=== PATIENT | female | born 1940 | race Caucasian/White ===

== ENCOUNTER 2016-12-24 06:25 | Emergency (ER) | payer MEDICARE, BC ==
[2016-12-24] MEDS ORDERED: LIDOCAINE 5% (700 MG) TRANSDERMAL ADH..PATCH TP ONE (06:58)
[2016-12-24] MEDS ORDERED: PROCHLORPERAZINE EDISYLATE INJ 10 MG/2 ML VIAL IV ONE (06:58)
[2016-12-24] MEDS ORDERED: ONDANSETRON HCL INJ/PF 4 MG/2 ML SDV IV ONE (06:58)
[2016-12-24] MEDS ORDERED: NORMAL SALINE 1000 ML 1,000 ML IV ONE (06:59)
[2016-12-24] MEDS ORDERED: NORMAL SALINE 500 ML IV ONE (06:59)
--- NOTE | 2016-12-24 07:14 | ER Document Report ---
ED General - General Chief Complaint: Headache Stated Complaint: HEADACHE Time Seen by Provider: 12/24/16 06:51 TRAVEL OUTSIDE OF THE [place] IN LAST 30 DAYS: No - HPI Patient complains to provider of: Right-sided headache Notes: Patient coming in for right-sided headache ongoing for the last 5 days. Patient states pain starts in the neck goes up to her head and to the forehead region. Patient states does feel like she has pins and needles. Patient has a history of multiple myeloma with hypertension. Patient states she is currently on chemotherapy and is on antihypertensive medication which she took just prior to arrival. Patient also states she is on a "commonly prescribed antibiotic that is pink" for a right ear infection. Otherwise patient denies fever chills nausea vomiting denies any photophobia. Denies any weakness. Patient is moving all 4 extremities ANO 4 with GCS 15 upon my evaluation. Denies any history of travel. Denies any history of trauma - Related Data Allergies/Adverse Reactions: No Known Allergies Allergy (Verified 12/24/16 08:46) Home Medications: Current Home Medications Levothyroxine Sodium [Levothyroxine Sodium] 88 mcg PO DAILY 12/24/16 [History] Metoprolol Succinate [Metoprolol Succinate] 50 mg PO DAILY 12/24/16 [History] Valsartan [Valsartan] 320 mg PO DAILY 12/24/16 [History] Past Medical History - Social History Smoking Status: Unknown if Ever Smoked Drug Abuse: None Family History: Reviewed & Not Pertinent Patient has suicidal ideation: No Patient has homicidal ideation: No - Past Medical History Cardiac Medical History: Reports: Hx Hypertension Renal/ Medical History: Denies: Hx Peritoneal Dialysis Review of Systems - Review of Systems Constitutional: No symptoms reported EENT: No symptoms reported Cardiovascular: No symptoms reported Respiratory: No symptoms reported Gastrointestinal: No symptoms reported Genitourinary: No symptoms reported Female Genitourinary: No symptoms reported Musculoskeletal: No symptoms reported Skin: No symptoms reported Hematologic/Lymphatic: No symptoms reported Neurological/Psychological: Headaches -: Yes All other systems reviewed and negative Physical Exam - Vital signs Vitals: Temp Pulse Resp BP Pulse Ox 98.3 F 64 20 193/55 H 96 12/24/16 06:26 12/24/16 06:26 12/24/16 06:26 12/24/16 06:26 12/24/16 06:26 Interpretation: Normal - General General appearance: Appears well, Alert - HEENT Head: Normocephalic, Atraumatic Eyes: Normal Conjunctiva: Normal Cornea: Normal Pupils: PERRL Anterior chamber: Normal Fundascopic: Normal Ears: Normal External canal: Normal Tympanic membrane: Normal Sinus: Normal Nasal: Normal Mouth/Lips: Normal Pharynx: Normal Neck: Other - Patient with tenderness to palpation of the paraspinal muscles of the right side. Patient also has tenderness going at full cervical spine on the right side with tenderness to palpation of the frontalis muscle on the right side of the forehead. Palpation does reproduce patient's pain. Range of motion of the neck is intact. - Respiratory Respiratory status: No respiratory distress Chest status: Nontender Breath sounds: Normal Chest palpation: Normal - Cardiovascular Rhythm: Regular Heart sounds: Normal auscultation Murmur: No - Abdominal Inspection: Normal Distension: No distension Bowel sounds: Normal Tenderness: Nontender Organomegaly: No organomegaly - Back Back: Normal, Nontender - Extremities General upper extremity: Normal inspection, Nontender, Normal color, Normal ROM , Normal temperature General lower extremity: Normal inspection, Nontender, Normal color, Normal ROM , Normal temperature, Normal weight bearing. No: Aleksandra's sign - Neurological Neuro grossly intact: Yes Cognition: Normal Orientation: AAOx4 [place] Coma Scale Eye Opening: Spontaneous [place] Coma Scale Verbal: Oriented [place] Coma Scale Motor: Obeys Commands Chintan Coma Scale Total: 15 Speech: Normal Motor strength normal: LUE, RUE, LLE, RLE Sensory: Normal - Psychological Associated symptoms: Normal affect, Normal mood - Skin Skin Temperature: Warm Skin Moisture: Dry Skin Color: Normal Course - Re-evaluation Re-evalutation: 12/24/16 07:14 12/24/16 13:19 The patient presents with headache without signs of FAMILY [employer] LEGAL ASSISTANT bleed, stroke, infection , or other serious etiology. The patient is neurologically intact. Given the extremely low risk of these diagnoses further testing and evaluation for these possibilities does not appear to be indicated at this time. The patient has been instructed to return if the symptoms worsen or change in any way.. - Vital Signs Vital signs: Temp Pulse Resp BP Pulse Ox 98.4 F 65 18 162/76 H 99 12/24/16 08:21 12/24/16 08:21 12/24/16 08:21 12/24/16 08:21 12/24/16 08:21 - Laboratory Result Diagrams: 12/24/16 07:40 12/24/16 07:40 Laboratory results interpreted by me: 12/24/16 12/24/16 07:40 07:40 MCV 99 H RDW 15.9 H Chloride 109 H BUN 31 H Creatinine 1.30 H Est GFR ( Amer) 48 L Est GFR (Non-Af Amer) 40 L Glucose 132 H Discharge - Discharge Clinical Impression: Headache Qualifiers: Headache type: unspecified Headache chronicity pattern: unspecified pattern Intractability: not intractable Qualified Code(s): R51 - Headache Condition: Good Disposition: HOME, SELF-CARE Instructions: Intravenous Compazine for Headaches ([facility]), Headache ([facility]), Tension Headache ([facility]), Migraine Headache ([facility]) Additional Instructions: Your headache is consistent with a possible migraine or tension headache. Please take medications as prescribed. Return to ER symptoms worsen. Prescriptions: Ondansetron [Zofran Odt 4 mg Tablet] 4 mg PO Q6 #20 tab.rapdis Prochlorperazine Maleate [Compazine] 5 mg PO Q6 #20 tablet Referrals: MIRACLE REYNA MD [Primary Care Provider] - Follow up as needed
[2016-12-24 08:02] LABS: ABSOLUTE EOSINOPHILS # (AUTO) 0.1 10^3/uL (0.0-0.6); ABSOLUTE LYMPHOCYTES (AUTO) 1.1 10^3/uL (0.5-4.7); ABSOLUTE MONOCYTES (AUTO) 0.7 10^3/uL (0.1-1.4); ABSOLUTE NEUT (AUTO) 4.9 10^3/uL (1.7-8.2); BASOPHILS % (AUTO) 0.7 % (0-2); HEMATOCRIT 36.8 % (36.0-47.0); HGB HCT DIFFERENCE -0.8; MEAN CORPUSCULAR HEMOGLOBIN 32.3 pg (27.0-33.4); MEAN CORPUSCULAR HGB CONC 32.6 g/dL (32.0-36.0); MEAN CORPUSCULAR VOLUME 99 fl (80-97); MONOCYTES % (AUTO) 10.2 % (3-13); RED BLOOD COUNT 3.72 10^6/uL (3.72-5.28); RED CELL DISTRIBUTION WIDTH 15.9 % (11.5-14.0); SEGMENTED NEUTROPHILS % (AUTO) 71.1 % (42-78); WHITE BLOOD COUNT 6.9 10^3/uL (4.0-10.5)
[2016-12-24 08:15] LABS: ANION GAP 12 (5-19); BLOOD UREA NITROGEN 31 mg/dL (7-20); CALCIUM 8.5 mg/dL (8.4-10.2); CARBON DIOXIDE 22 mmol/L (22-30); CHLORIDE 109 mmol/L (98-107); GLUCOSE 132 mg/dL (75-110); SODIUM 142.9 mmol/L (137-145)
--- NOTE | 2016-12-24 08:35 | RADIOLOGY REPORT (SQ) ---
EXAM DESCRIPTION: CT HEAD WITHOUT COMPLETED DATE/TIME: 12/24/2016 8:18 am REASON FOR STUDY: right sided headache COMPARISON: None. TECHNIQUE: Axial images acquired through the brain without intravenous contrast. Images reviewed wi th bone, brain and subdural windows. Images stored on PACS. All CT scanners at this facility use dose modulation, iterative reconstruction, and/or weight based d osing when appropriate to reduce radiation dose to as low as reasonably achievable (ALARA). [facility]: Dose Right [facility]: CareDose [facility]: Dose Right [facility]: Teradose 4D [facility]: Smart [employer] mobile RADIATION DOSE: Up-to-date CT equipment and radiation dose reduction techniques were employed. CTDIv ol: 64.6 mGy. DLP: 1034 mGy-cm. mGy. LIMITATIONS: Motion artifact. FINDINGS: VENTRICLES: Normal size and contour. CEREBRUM: No masses. No hemorrhage. No midline shift. Minimal chronic small vessel ischemic diseas e. . No evidence for acute infarction. CEREBELLUM: No masses. No hemorrhage. No alteration of density. No evidence for acute infarction. EXTRAAXIAL SPACES: No fluid collections. No masses. ORBITS AND GLOBE: No intra- or extraconal masses. Normal contour of globe without masses. CALVARIUM: No fracture. PARANASAL SINUSES: Minimal mucosal thickening in the sinuses. No air-fluid levels. SOFT TISSUES: No mass or hematoma. OTHER: No other significant finding. IMPRESSION: 1. No evidence of acute event. 2. Minimal chronic small vessel ischemic disease. 3. Minimal mucosal thickening in the sinuses. TECHNICAL DOCUMENTATION: JOB ID: [id number] Quality ID # [id number]: Final reports with documentation of one or more dose reduction techniques (e.g., Au tomated exposure control, adjustment of the mA and/or kV according to patient size, use of iterative reconstruction technique) 2010 [employer]- All Rights Reserved
[2016-12-24 08:40] VITALS: BP 162/76
[2016-12-24] MEDS ORDERED: KETOROLAC TROMETHAMINE INJ/PF 30 MG/1 ML SDV IV ONE (08:45)
[2016-12-24] MEDS ORDERED: DIPHENHYDRAMINE HCL 50 MG/ML VIAL IV ONE (08:45)
[2016-12-24] MEDS ORDERED: METOCLOPRAMIDE HCL INJ/PF 10 MG/2 ML SDV IV ONE (08:45)
[2016-12-24] MEDS ORDERED: DEXAMETHASONE SOD PHOS INJ 10 MG/1 ML VIAL IV ONE (10:22)
== END 2016-12-24 10:54 | disposition home or self-care (01) ==
LOC: ER 06:25
DX: R51 Headache (principal); I10 Essential (primary) hypertension
CPT/HCPCS: 99284; 96374; 96375; 36415; 85025; 80048; 70450; J1200; J1885; J2765; J0780; J2405; J7030; J1100

== ENCOUNTER → 2018-04-03 | Outpatient (CLI) | payer MEDICARE, BC ==
--- NOTE | 2018-04-03 18:34 | RADIOLOGY REPORT (SQ) ---
EXAM DESCRIPTION: VENOUS UNILATERAL LOWER COMPLETED DATE/TIME: 04/03/2018 6:18 pm REASON FOR STUDY: LLE SWELLING M79.89 OTHER SPECIFIED SOFT TISSUE DISORDERS COMPARISON: None. TECHNIQUE: Dynamic and static mason scale and color images acquired of the left leg venous system. Se lected spectral images acquired with additional compression and augmentation maneuvers. The contralat eral common femoral vein and saphenofemoral junction were also imaged. Images stored on PACS. LIMITATIONS: None. FINDINGS: COMMON FEMORAL: Normal phasicity, compression and augmentation. No visualized echogenic ma terial on mason scale. No defects on color images. FEMORAL: Normal compression and augmentation. No visualized echogenic material on mason scale. No defe cts on color images. POPLITEAL: Normal compression, augmentation. No visualized echogenic material on mason scale. No defec ts on color images. CALF VESSELS: Normal compression, augmentation. No visualized echogenic material on mason scale. No de fects on color images. GSV and SSV: Normal compression, augmentation. No visualized echogenic material on mason scale. No def ects on color images. ANY DEEP VENOUS INSUFFICIENCY: Not evaluated. ANY EVIDENCE OF POPLITEAL CYST: No. OTHER: No other significant finding. CONTRALATERAL COMMON FEMORAL VEIN AND SAPHENOFEMORAL JUNCTION: Normal phasicity, compression and augmentation. No visualized echogenic material on mason scale. No de fects on color images. IMPRESSION: NO EVIDENCE DVT OR SVT IN THE LEFT LEG. TECHNICAL DOCUMENTATION: JOB ID: [id number] [employer]- All Rights Reserved Reading location - IP/workstation name: [email or web address]
== END ==
LOC: SP 17:23
PROVIDERS: ATTEND Internal Medicine
DX: M79.89 Other specified soft tissue disorders (principal)
CPT/HCPCS: 93971

== ENCOUNTER 2019-02-05 00:38 | Emergency (ER) | payer MEDICARE, BC ==
[2019-02-05] MEDS ORDERED: ASPIRIN 81 MG TABLET, CHEWABLE PO ONE (00:45)
--- NOTE | 2019-02-05 01:01 | ER Document Report ---
ED Cardiac - General Chief Complaint: Chest Pain Stated Complaint: CHEST PAIN Time Seen by Provider: 02/05/19 00:55 Primary Care Provider: MIRACLE REYNA MD [Primary Care Provider] - Follow up as needed TRAVEL OUTSIDE OF THE [place] IN LAST 30 DAYS: No - HPI Notes: This is a 78-year-old female who presents today with complaint substernal chest pain described as tightness and aching, that started about 2 hours prior to presentation. Pain radiates down her arms and her jaw bilaterally. Associated symptoms include nausea but no vomiting. She also has some dyspnea. Patient describes generalized weakness. Patient notes that she had a similar presentation after she had a failed spinal chemotherapy for multiple myeloma. She states at that time, they had a full work-up which was negative for coronary artery disease. Her last chemotherapy was about 3 months ago. There are no obvious aggravating or relieving factors. - Related Data Allergies/Adverse Reactions: No Known Allergies Allergy (Verified 12/24/16 08:46) Past Medical History - Social History Smoking Status: Never Smoker Frequency of alcohol use: None Drug Abuse: None Family History: Reviewed & Not Pertinent - Past Medical History Cardiac Medical History: Reports: Hx Hypertension Renal/ Medical History: Denies: Hx Peritoneal Dialysis Review of Systems - Review of Systems Constitutional: Weakness. denies: Fever Cardiovascular: Chest pain, Dyspnea Respiratory: Short of breath Gastrointestinal: denies: Abdominal pain, Vomiting, Constipation Neurological/Psychological: Weakness -: Yes All other systems reviewed and negative Physical Exam - Vital signs Vitals: Resp Pulse Ox 27 H 95 02/05/19 01:15 02/05/19 01:15 Notes: Vital signs reviewed per nurse's notes. - General General appearance: Appears well - HEENT Head: Normocephalic, Atraumatic - Respiratory Respiratory status: No respiratory distress Chest status: Nontender Breath sounds: Normal Chest palpation: Normal - Cardiovascular Rhythm: Regular Heart sounds: Normal auscultation Murmur: No Friction rub: No - Abdominal Inspection: Normal Distension: No distension Bowel sounds: Normal Tenderness: Nontender - Back Back: Normal - Extremities General upper extremity: Normal inspection, Nontender General lower extremity: Normal inspection, Nontender - Neurological Neuro grossly intact: Yes Cognition: Normal Orientation: AAOx4 [place] Coma Scale Eye Opening: Spontaneous [place] Coma Scale Verbal: Oriented Speech: Normal - Skin Skin Temperature: Warm Skin Moisture: Dry Skin Color: Ashen Course - Re-evaluation Re-evalutation: 02/05/19 01:01 Differential diagnosis includes acute coronary syndrome versus atypical chest pain. Given this patient's risk factors, I will need to rule out ACS. EKG shows normal sinus rhythm at 80 bpm. There is inferolateral ST depression but no ST segment elevation. 02/05/19 02:21 Patient reevaluated. She is pain-free. Repeat EKG is essentially unchanged from initial EKG. Shows normal sinus rhythm at [address] segment depression but no obvious elevation. Patient's care discussed with Dr. Sanches, cardiology. He recommends transfer to [facility] for urgent cath. 02/05/19 03:04 Patient reevaluated. Patient remains pain-free. Patient's case discussed with Dr. Kesha Guo [facility]. He accepts transfer. Recommend to start heparin drip. Also recommend improved blood pressure control. 02/05/19 06:18 Patient reevaluated. She is resting comfortably. She has no pain at this time. She is stable for transfer. - Vital Signs Vital signs: Temp Pulse Resp BP Pulse Ox 98.5 F 12 163/65 H 94 02/05/19 04:00 02/05/19 04:32 02/05/19 04:32 02/05/19 04:32 - Laboratory Result Diagrams: 02/05/19 04:45 02/05/19 01:15 Laboratory results interpreted by me: 02/05/19 02/05/19 02/05/19 01:15 01:15 03:20 WBC 12.4 H RBC 3.47 L Hgb 10.7 L Hct 32.7 L RDW 16.6 H Absolute Neuts (auto) 9.5 H Potassium 5.5 H Chloride 112 H Carbon Dioxide 18 L BUN 36 H Creatinine 1.86 H Est GFR ( Amer) 32 L Est GFR (MDRD) Non-Af 26 L Glucose 277 H Alkaline Phosphatase 172 H Creatine Kinase 146 H Urine Protein >=500 H Urine Glucose (UA) 150 H Urine Blood SMALL H 02/05/19 04:45 WBC 12.1 H RBC 3.17 L Hgb 9.6 L Hct 29.6 L RDW 16.4 H Absolute Neuts (auto) Potassium Chloride Carbon Dioxide BUN Creatinine Est GFR ( Amer) Est GFR (MDRD) Non-Af Glucose Alkaline Phosphatase Creatine Kinase Urine Protein Urine Glucose (UA) Urine Blood Critical Care Note - Critical Care Note Total time excluding time spent on procedures (mins): 60 Comments: Critical care time for evaluation and management of acute coronary syndrome. Discharge - Discharge Clinical Impression: NSTEMI (non-ST elevated myocardial infarction) Condition: Fair Disposition: [facility] Referrals: MIRACLE REYNA MD [Primary Care Provider] - Follow up as needed
[2019-02-05] MEDS: NITROGLYCERIN 0.4 MG/TAB 25 TAB/BOTTLE SL PRN ×2 (01:25→01:30)
[2019-02-05 01:29] LABS: ABSOLUTE BASOPHILS # (AUTO) 0.2 10^3/uL (0.0-0.2); ABSOLUTE EOSINOPHILS # (AUTO) 0.2 10^3/uL (0.0-0.6); ABSOLUTE MONOCYTES (AUTO) 0.5 10^3/uL (0.1-1.4); ABSOLUTE NEUT (AUTO) 9.5 10^3/uL (1.7-8.2); BASOPHILS % (AUTO) 1.2 % (0-2); EOSINOPHILS % (AUTO) 1.4 % (0-6); HEMATOCRIT 32.7 % (36.0-47.0); HEMOGLOBIN 10.7 g/dL (12.0-15.5); LYMPHOCYTES % (AUTO) 16.5 % (13-45); MEAN CORPUSCULAR HEMOGLOBIN 30.9 pg (27.0-33.4); MEAN CORPUSCULAR HGB CONC 32.7 g/dL (32.0-36.0); MEAN CORPUSCULAR VOLUME 94 fl (80-97); MONOCYTES % (AUTO) 4.1 % (3-13); PLATELET COUNT 346 10^3/uL (150-450); RED BLOOD COUNT 3.47 10^6/uL (3.72-5.28); RED CELL DISTRIBUTION WIDTH 16.6 % (11.5-14.0); SEGMENTED NEUTROPHILS % (AUTO) 76.8 % (42-78); TOTAL CELLS COUNTED % (AUTO) 100 %; WHITE BLOOD COUNT 12.4 10^3/uL (4.0-10.5)
[2019-02-05 01:43] LABS: ALKALINE PHOSPHATASE 172 U/L (38-126); ANION GAP 13 (5-19); ASPARTATE AMINO TRANSFERASE 22 U/L (14-36); BILIRUBIN,DIRECT 0.1 mg/dL (0.0-0.4); BILIRUBIN,TOTAL 0.4 mg/dL (0.2-1.3); BLOOD UREA NITROGEN 36 mg/dL (7-20); CARBON DIOXIDE 18 mmol/L (22-30); CHLORIDE 112 mmol/L (98-107); CREATINE KINASE 146 U/L (30-135); GLUCOSE 277 mg/dL (75-110); POTASSIUM 5.5 mmol/L (3.6-5.0); TOTAL PROTEIN 7.8 g/dL (6.3-8.2)
[2019-02-05 01:54] LABS: CREATINE KINASE MB 4.09 ng/mL (<4.55)
[2019-02-05 02:01] LABS: TROPONIN I 0.167 ng/mL
[2019-02-05] MEDS ORDERED: MORPHINE SULFATE 10 MG/ML INJ IV ONE (02:04)
--- NOTE | 2019-02-05 02:31 | RADIOLOGY REPORT (SQ) ---
EXAM DESCRIPTION: XR CHEST 2 VIEWS COMPLETED DATE/TME: 02/05/2019 00:00 CLINICAL HISTORY: 78 years, Female, cp COMPARISON: None. NUMBER OF VIEWS: 2 TECHNIQUE: 2 view chest LIMITATIONS: None. FINDINGS: Heart size is normal. Osteopenia. Lungs are clear. No pneumothorax IMPRESSION: No acute cardiopulmonary process copyright 2010 [employer]- All Rights Reserved
[2019-02-05] MEDS ORDERED: HEPARIN SOD (PORCINE) 1,000 UNIT/ML 10 ML VIAL IV ONE (03:02)
[2019-02-05] MEDS ORDERED: HEPARIN SODIUM,PORCINE/D5W 25,000 UNIT/250 ML RTUINJ IV PRN (03:02)
[2019-02-05] MEDS ORDERED: METOPROLOL TARTRATE PF/INJ 5 MG/5 ML SDV IV ONE (03:04)
[2019-02-05] MEDS ORDERED: HEPARIN SODIUM,PORCINE/D5W 25,000 UNIT/250 ML RTUINJ IV ONE (03:31)
[2019-02-05 03:34] LABS: APPEARANCE,URINE CLEAR; BILIRUBIN,URINE NEGATIVE (NEGATIVE); COLOR,URINE YELLOW; GLUCOSE, URINE 150 mg/dL (NEGATIVE); KETONES,URINE NEGATIVE (NEGATIVE); LEUKOCYTE ESTERASE,URINE NEGATIVE (NEGATIVE); NITRITE,URINE NEGATIVE (NEGATIVE); PROTEIN,URINE >=500 mg/dL (NEGATIVE); URINE SPECIFIC GRAVITY 1.013; UROBILINOGEN,URINE NEGATIVE mg/dL (<2.0)
[2019-02-05 03:43] LABS: PROTHROMBIN TIME 13.2 SEC (11.4-15.4)
[2019-02-05 03:44] LABS: PARTIAL THROMBOPLASTIN TIME 31.1 SEC (23.5-35.8)
[2019-02-05 05:22] LABS: ABSOLUTE BASOPHILS # (AUTO) 0.1 10^3/uL (0.0-0.2); ABSOLUTE EOSINOPHILS # (AUTO) 0.2 10^3/uL (0.0-0.6); ABSOLUTE MONOCYTES (AUTO) 0.7 10^3/uL (0.1-1.4); ABSOLUTE NEUT (AUTO) 8.2 10^3/uL (1.7-8.2); BASOPHILS % (AUTO) 1.1 % (0-2); EOSINOPHILS % (AUTO) 1.3 % (0-6); HEMATOCRIT 29.6 % (36.0-47.0); HEMOGLOBIN 9.6 g/dL (12.0-15.5); LYMPHOCYTES % (AUTO) 24.6 % (13-45); MEAN CORPUSCULAR HEMOGLOBIN 30.3 pg (27.0-33.4); MEAN CORPUSCULAR HGB CONC 32.4 g/dL (32.0-36.0); MEAN CORPUSCULAR VOLUME 93 fl (80-97); MONOCYTES % (AUTO) 5.6 % (3-13); PLATELET COUNT 306 10^3/uL (150-450); RED BLOOD COUNT 3.17 10^6/uL (3.72-5.28); RED CELL DISTRIBUTION WIDTH 16.4 % (11.5-14.0); SEGMENTED NEUTROPHILS % (AUTO) 67.4 % (42-78); TOTAL CELLS COUNTED % (AUTO) 100 %; WHITE BLOOD COUNT 12.1 10^3/uL (4.0-10.5)
[2019-02-05] MEDS ORDERED: HEPARIN SOD (PORCINE) 1,000 UNIT/ML 10 ML VIAL IV PRN (06:03)
--- NOTE | 2019-02-05 07:38 | EKG REPORT ---
SEVERITY:- ABNORMAL ECG - SINUS RHYTHM INCOMPLETE RIGHT BUNDLE BRANCH BLOCK ST DEPRESSION, CONSIDER ISCHEMIA, ANT-LAT LDS : Confirmed by: Michael Perez MD 05-Feb-2019 07:37:45
--- NOTE | 2019-02-05 07:39 | EKG REPORT ---
SEVERITY:- ABNORMAL ECG - SINUS RHYTHM IVCD, CONSIDER ATYPICAL RBBB ST DEPRESSION, CONSIDER ISCHEMIA, ANT LEADS : Confirmed by: Michael Perez MD 05-Feb-2019 07:38:22
[2019-02-05 09:14] LABS: HEMATOCRIT 29.2 % (36.0-47.0); HEMOGLOBIN 9.6 g/dL (12.0-15.5); MEAN CORPUSCULAR HEMOGLOBIN 30.9 pg (27.0-33.4); MEAN CORPUSCULAR HGB CONC 32.8 g/dL (32.0-36.0); MEAN CORPUSCULAR VOLUME 94 fl (80-97); PLATELET COUNT 300 10^3/uL (150-450); RED CELL DISTRIBUTION WIDTH 16.6 % (11.5-14.0); WHITE BLOOD COUNT 11.2 10^3/uL (4.0-10.5)
--- NOTE | 2019-02-05 10:06 | ER Document Report ---
Doctor's Note Notes: 02/05/19 10:03 I have evaluated this pt. this am and she has no c/o at this time. She feels all of her needs are being met and her physical exam is normal. She is awaiting transfer to [facility] for her medical issues
--- NOTE | 2019-02-05 10:27 | ER Document Report ---
Doctor's Note Notes: 02/05/19 10:27 Transfer is here for the patient. Her heparin was stopped due to excessive PTT. Her vital signs are stable, she is resting comfortably. She is stable for transfer at this time.
[2019-02-05 10:43] VITALS: BP 172/74
== END 2019-02-05 10:44 | disposition short-term general hospital (02) ==
LOC: ER 00:38
DX: I21.4 Non-ST elevation (NSTEMI) myocardial infarction (principal); R07.9 Chest pain, unspecified; M79.601 Pain in right arm; M79.602 Pain in left arm; R68.84 Jaw pain; R11.0 Nausea; R06.00 Dyspnea, unspecified; R53.1 Weakness; I10 Essential (primary) hypertension
CPT/HCPCS: 93005; 99291; 96374; 36415; 82553; 82550; 85025; 85610; 85730; 80053; 81001; 84484; 71046; 93010; J1644 ×2; J2270

== ENCOUNTER 2019-03-04 13:05 | Emergency (ER) | payer MEDICARE, BC ==
--- NOTE | 2019-03-04 13:38 | ER Document Report ---
ED Medical Screen (RME) - General Chief Complaint: Abnormal Lab Results Stated Complaint: ABNORMAL LABS Time Seen by Provider: 03/04/19 13:34 Primary Care Provider: MIRACLE REYNA MD [Primary Care Provider] - Follow up as needed Mode of Arrival: Wheelchair Information source: Patient Notes: 78-year-old female presents to ED for transfusion of blood. She was sent by for blood transfusion. He states her hemoglobin was 7 and needs 3 units of blood. He states that he would like her to get 20 mg of Lasix after each unit. Patient states she has multiple myeloma and is treated at [facility]. She states she had a heart attack 3 weeks ago and was sent to [facility]. She states called her last night and told her to come to the emergency room. He did send a copy of the labs with her. I have greeted and performed a rapid initial assessment of this patient. A comprehensive ED assessment and evaluation of the patient, analysis of test re sults and completion of medical decision making process will be conducted by an additional ED providers. TRAVEL OUTSIDE OF THE [place] IN LAST 30 DAYS: No - Related Data Allergies/Adverse Reactions: No Known Allergies Allergy (Verified 03/04/19 13:31) Past Medical History - Past Medical History Cardiac Medical History: Reports: Hx Hypertension Renal/ Medical History: Denies: Hx Peritoneal Dialysis Physical Exam - Vital signs Vitals: Temp Pulse Resp BP Pulse Ox 97.5 F 51 L 16 130/48 H 98 03/04/19 13:23 03/04/19 13:23 03/04/19 13:23 03/04/19 13:23 03/04/19 13:23 Course - Vital Signs Vital signs: Temp Pulse Resp BP Pulse Ox 97.5 F 51 L 16 130/48 H 98 03/04/19 13:23 03/04/19 13:23 03/04/19 13:23 03/04/19 13:23 03/04/19 13:23 Doctor's Discharge - Discharge Referrals: MIRACLE REYNA MD [Primary Care Provider] - Follow up as needed
[2019-03-04 15:02] LABS: ABSOLUTE BASOPHILS # (AUTO) 0.1 10^3/uL (0.0-0.2); ABSOLUTE EOSINOPHILS # (AUTO) 0.4 10^3/uL (0.0-0.6); ABSOLUTE LYMPHOCYTES (AUTO) 2.3 10^3/uL (0.5-4.7); ABSOLUTE MONOCYTES (AUTO) 0.6 10^3/uL (0.1-1.4); ABSOLUTE NEUT (AUTO) 6.8 10^3/uL (1.7-8.2); BASOPHILS % (AUTO) 0.7 % (0-2); EOSINOPHILS % (AUTO) 3.9 % (0-6); HEMATOCRIT 21.7 % (36.0-47.0); LYMPHOCYTES % (AUTO) 22.6 % (13-45); MEAN CORPUSCULAR HEMOGLOBIN 31.3 pg (27.0-33.4); MEAN CORPUSCULAR HGB CONC 32.8 g/dL (32.0-36.0); MEAN CORPUSCULAR VOLUME 95 fl (80-97); MONOCYTES % (AUTO) 5.7 % (3-13); PLATELET COUNT 219 10^3/uL (150-450); RED BLOOD COUNT 2.28 10^6/uL (3.72-5.28); RED CELL DISTRIBUTION WIDTH 15.9 % (11.5-14.0); SEGMENTED NEUTROPHILS % (AUTO) 67.1 % (42-78); TOTAL CELLS COUNTED % (AUTO) 100 %; WHITE BLOOD COUNT 10.1 10^3/uL (4.0-10.5)
[2019-03-04 15:06] LABS: HEMOGLOBIN 7.1 g/dL (12.0-15.5)
[2019-03-04 15:16] LABS: ALBUMIN 3.8 g/dL (3.5-5.0); ALKALINE PHOSPHATASE 149 U/L (38-126); ANION GAP 11 (5-19); ASPARTATE AMINO TRANSFERASE 22 U/L (14-36); BILIRUBIN,DIRECT 0.2 mg/dL (0.0-0.4); BILIRUBIN,TOTAL 0.4 mg/dL (0.2-1.3); BLOOD UREA NITROGEN 57 mg/dL (7-20); CALCIUM 7.9 mg/dL (8.4-10.2); CARBON DIOXIDE 21 mmol/L (22-30); CHLORIDE 110 mmol/L (98-107); CREATINE KINASE 84 U/L (30-135); GLUCOSE 102 mg/dL (75-110); POTASSIUM 4.5 mmol/L (3.6-5.0); TOTAL PROTEIN 7.4 g/dL (6.3-8.2)
[2019-03-04 15:28] LABS: CREATINE KINASE MB 1.63 ng/mL (<4.55)
[2019-03-04 15:35] LABS: TROPONIN I 0.343 ng/mL
[2019-03-04] MEDS ORDERED: NORMAL SALINE 250 ML IV PRN (16:01)
[2019-03-04] MEDS ORDERED: FUROSEMIDE INJ/PF 20 MG/2 ML SDV IV ONE (16:15)
--- NOTE | 2019-03-04 16:22 | ER Document Report ---
ED General - General Chief Complaint: Abnormal Lab Results Stated Complaint: ABNORMAL LABS Time Seen by Provider: 03/04/19 13:34 Primary Care Provider: MIRACLE REYNA MD [Primary Care Provider] - Follow up as needed Mode of Arrival: Wheelchair Information source: Patient TRAVEL OUTSIDE OF THE [place] IN LAST 30 DAYS: No - HPI Patient complains to provider of: anemia Onset: Other - Pt. with h/o multiple myeloma with recurrent anemia sent by PCP for blood transfusion. Pt feels well but was called by her PCP last night and told she needed to come to the ED for transfusion. - Related Data Allergies/Adverse Reactions: No Known Allergies Allergy (Verified 03/04/19 13:31) Past Medical History - General Information source: Patient - Social History Smoking Status: Never Smoker Chew tobacco use (# tins/day): No Frequency of alcohol use: None Drug Abuse: None Family History: Reviewed & Not Pertinent Patient has suicidal ideation: No Patient has homicidal ideation: No - Past Medical History Cardiac Medical History: Reports: Hx Heart Attack, Hx Hypertension Renal/ Medical History: Denies: Hx Peritoneal Dialysis Malignancy Medical History: Reports: Hx Bone Cancer Past Surgical History: Reports: Hx Orthopedic Surgery - kneex2, back, rotator cuff Review of Systems - Review of Systems Constitutional: No symptoms reported EENT: No symptoms reported Cardiovascular: No symptoms reported Respiratory: No symptoms reported Gastrointestinal: No symptoms reported Musculoskeletal: No symptoms reported Neurological/Psychological: No symptoms reported -: Yes All other systems reviewed and negative Physical Exam - Vital signs Vitals: Temp Pulse Resp BP Pulse Ox 97.5 F 51 L 16 130/48 H 98 03/04/19 13:23 03/04/19 13:23 03/04/19 13:23 03/04/19 13:23 03/04/19 13:23 - General General appearance: Appears well In distress: None - Respiratory Respiratory status: No respiratory distress Breath sounds: Normal - Cardiovascular Rhythm: Regular Heart sounds: Normal auscultation Murmur: No - Abdominal Inspection: Normal Tenderness: Nontender - Neurological Neuro grossly intact: Yes Cognition: Normal Orientation: AAOx4 Course - Re-evaluation Re-evalutation: 03/04/19 16:27 I have spoken to the charge nurse (Ethel) and she said the pt. will have to stay in the ED for the transfusion as we won't be able to get a bed for her by the time a bed becomes available for admission 03/04/19 18:10 I have spoken to hospitalist (Mr. Ibarra) and he feels 1 unit of blood will suffice in this asymptomatic patient. Pt is agreeable to this and we will transfuse 1 unit and d/c to home. - Vital Signs Vital signs: Temp Pulse Resp BP Pulse Ox 97.5 F 55 L 18 154/62 H 100 03/04/19 18:43 03/04/19 18:46 03/04/19 18:46 03/04/19 18:46 03/04/19 18:46 - Laboratory Result Diagrams: 03/04/19 14:39 03/04/19 14:39 Laboratory results interpreted by me: 03/04/19 03/04/19 03/04/19 14:39 14:39 14:39 RBC 2.28 L Hgb 7.1 L Hct 21.7 L RDW 15.9 H Chloride 110 H Carbon Dioxide 21 L BUN 57 H Creatinine 1.94 H Est GFR ( Amer) 30 L Est GFR (MDRD) Non-Af 25 L Calcium 7.9 L Alkaline Phosphatase 149 H Crossmatch See Detail Discharge - Discharge Clinical Impression: Anemia Qualifiers: Anemia type: unspecified type Qualified Code(s): D64.9 - Anemia, unspecified Condition: Stable Disposition: HOME, SELF-CARE Additional Instructions: rest, continue current meds, return if worse Referrals: MIRACLE REYNA MD [Primary Care Provider] - Follow up as needed
[2019-03-04] MEDS ORDERED: FUROSEMIDE INJ/PF 20 MG/2 ML SDV ONE (22:02)
[2019-03-04 22:05] VITALS: BP 159/76
== END 2019-03-04 22:19 | disposition home or self-care (01) ==
LOC: ER 13:05
DX: D64.9 Anemia, unspecified (principal); I10 Essential (primary) hypertension
CPT/HCPCS: 86900; 86901; 36415; 82553; 36430; 86850; 82550; 85025; 80053; 84484; 86920; P9016; J1940; J7050

== ENCOUNTER 2019-04-16 01:25 | Emergency (ER) | payer MEDICARE, BC ==
[2019-04-16] MEDS ORDERED: ASPIRIN 81 MG TABLET, CHEWABLE PO ONE (02:14)
[2019-04-16] MEDS ORDERED: NITROGLYCERIN 0.4 MG/TAB 25 TAB/BOTTLE ONE (02:15)
[2019-04-16] MEDS ORDERED: MORPHINE SULFATE 10 MG/ML INJ IV ONE (02:15)
[2019-04-16] MEDS: NITROGLYCERIN 0.4 MG/TAB 25 TAB/BOTTLE SL PRN ×2 (02:18→02:37)
[2019-04-16 02:23] LABS: ABSOLUTE EOSINOPHILS # (AUTO) 0.2 10^3/uL (0.0-0.6); ABSOLUTE LYMPHOCYTES (AUTO) 1.9 10^3/uL (0.5-4.7); ABSOLUTE MONOCYTES (AUTO) 0.8 10^3/uL (0.1-1.4); ABSOLUTE NEUT (AUTO) 10.5 10^3/uL (1.7-8.2); BASOPHILS % (AUTO) 0.3 % (0-2); EOSINOPHILS % (AUTO) 1.7 % (0-6); HEMATOCRIT 31.6 % (36.0-47.0); HEMOGLOBIN 10.4 g/dL (12.0-15.5); LYMPHOCYTES % (AUTO) 14.3 % (13-45); MEAN CORPUSCULAR HEMOGLOBIN 30.4 pg (27.0-33.4); MEAN CORPUSCULAR HGB CONC 32.8 g/dL (32.0-36.0); MEAN CORPUSCULAR VOLUME 93 fl (80-97); MONOCYTES % (AUTO) 5.8 % (3-13); PLATELET COUNT 227 10^3/uL (150-450); RED CELL DISTRIBUTION WIDTH 17.5 % (11.5-14.0); SEGMENTED NEUTROPHILS % (AUTO) 77.9 % (42-78); TOTAL CELLS COUNTED % (AUTO) 100 %; WHITE BLOOD COUNT 13.5 10^3/uL (4.0-10.5)
[2019-04-16 02:32] LABS: ALKALINE PHOSPHATASE 186 U/L (38-126); ANION GAP 14 (5-19); ASPARTATE AMINO TRANSFERASE 40 U/L (14-36); BILIRUBIN,DIRECT 0.3 mg/dL (0.0-0.4); BILIRUBIN,TOTAL 0.7 mg/dL (0.2-1.3); BLOOD UREA NITROGEN 43 mg/dL (7-20); CALCIUM 8.4 mg/dL (8.4-10.2); CARBON DIOXIDE 19 mmol/L (22-30); CHLORIDE 111 mmol/L (98-107); CREATINE KINASE 84 U/L (30-135); GLUCOSE 194 mg/dL (75-110); POTASSIUM 4.4 mmol/L (3.6-5.0); TOTAL PROTEIN 7.8 g/dL (6.3-8.2)
[2019-04-16 02:42] LABS: CREATINE KINASE MB 1.51 ng/mL (<4.55)
--- NOTE | 2019-04-16 02:44 | ER Document Report ---
ED General - General Chief Complaint: Chest Pain Stated Complaint: CHEST PAIN Time Seen by Provider: 04/16/19 01:44 Primary Care Provider: MIRACLE REYNA MD [Primary Care Provider] - Follow up as needed TRAVEL OUTSIDE OF THE [place] IN LAST 30 DAYS: No - HPI Notes: This is a 78-year-old female with a known history of coronary artery disease who presents emergency department for evaluation of substernal chest pain. She states she was lying down in bed when she had sudden onset tightness and pressure in her substernal region, with radiation down to her right arm. She s tates she has felt short of breath and nauseated with this. She denies any diaphoresis or near syncope. She states that this pain feels similar to when she is had her heart attack in the past. The patient had a heart catheterization back in January. She states at that point she was told that s he would likely need bypass surgery. She was evaluated and found not to be a good candidate for her. This was considering her multiple medical issues. Decision was made to proceed with another heart catheterization and attempted stenting, scheduled for next Friday. - Related Data Allergies/Adverse Reactions: No Known Allergies Allergy (Verified 03/04/19 13:31) Home Medications: Omeprazole 40 mg daily, isosorbide 30 mg ER 2 tabs daily, Vitamin B!2, gabapentin 600mg daily, Aspirin 81 mg, atorvastatin 80 mg at bedtime, carvedilol 12.5 mg BID, Potassium CL 10 MEQ daily, [id number] mcg daily, clopidogrel 75 mg daily, Torsemide 20mg daily Past Medical History - General Information source: Patient - Social History Smoking Status: Never Smoker Chew tobacco use (# tins/day): No Frequency of alcohol use: None Drug Abuse: None Family History: Reviewed & Not Pertinent Patient has suicidal ideation: No Patient has homicidal ideation: No - Past Medical History Cardiac Medical History: Reports: Hx Congestive Heart Failure, Hx Coronary Artery Disease, Hx Heart Attack, Hx Hypertension Renal/ Medical History: Reports: Hx Renal Insufficiency. Denies: Hx Peritoneal Dialysis Malignancy Medical History: Reports: Hx Bone Cancer, Other - Multiple myeloma GI Medical History: Reports: Hx Gastroesophageal Reflux Disease Past Surgical History: Reports: Hx Orthopedic Surgery - kneex2, back, rotator cuff Review of Systems - Review of Systems Constitutional: No symptoms reported EENT: No symptoms reported Cardiovascular: See HPI Respiratory: See HPI Gastrointestinal: See HPI Genitourinary: No symptoms reported Musculoskeletal: No symptoms reported Skin: No symptoms reported Neurological/Psychological: No symptoms reported Physical Exam - Vital signs Vitals: Resp Pulse Ox 25 H 92 04/16/19 01:31 04/16/19 01:31 - Notes Notes: Is a 78-year-old female who appears her stated age in a moderate amount of distress. She is grabbing at her chest, mildly tachypneic. She is sitting on room air, hypoxic at 88%. Vital signs reviewed, please refer to chart. Head is normocephalic, atraumatic. Pupils equal round, reactive to light. Neck is supple without meningismus. Heart is regular rate and rhythm. Lungs are clear to auscultation bilaterally. Abdomen is soft, nontender, normoactive bowel sounds throughout. Extremities without cyanosis, clubbing. Posterior calves are nontender. Peripheral pulses are equal. Skin is warm and dry. Patient is awake, alert, neurological exam is nonfocal. Course - Re-evaluation Re-evalutation: 04/16/19 02:43 Patient presents emergency department for evaluation of chest pain. She is placed in a director cardiac, oxygen per nasal cannula. Laboratory investigations, EKG, chest x-ray ordered. Patient was given aspirin, nit roglycerin, with some relief of her pain. She was further medicated with morphine. Awaiting laboratory investigations, we will continue to monitor. 04/16/19 03:07 Patient was given aspirin, 2 sublingual nitroglycerin, and morphine, and became chest pain-free. Her blood pressure improved. She had nitroglycerin paste placed, started on heparin. I spoke with Dr. Joseph, barkeep at [facility], as this patient is expecting an interventional heart catheterization there in 1 week. They happily excepted the patient to [facility] for further evaluation and care. 04/16/19 05:35 Patient remained stable. I evaluated her multiple times, she is resting comfortably. Her proBNP did come back elevated and her chest x-ray was read by radiology as showing interstitial edema. I did order IV Lasix. Patient remains chest pain-free. She has been accepted by [facility], but she will not have transport until 7:30 AM. She remained stable, has no questions or concerns at this time. - Vital Signs Vital signs: Temp Pulse Resp BP Pulse Ox 97.9 F 13 129/66 H 97 04/16/19 02:26 04/16/19 05:01 04/16/19 05:00 04/16/19 05:01 - Laboratory Result Diagrams: 04/16/19 01:12 04/16/19 01:12 Laboratory results interpreted by me: 04/16/19 04/16/19 04/16/19 01:12 01:12 01:22 WBC 13.5 H RBC 3.40 L Hgb 10.4 L Hct 31.6 L RDW 17.5 H Absolute Neuts (auto) 10.5 H Chloride 111 H Carbon Dioxide 19 L BUN 43 H Creatinine 1.73 H Est GFR ( Amer) 35 L Est GFR (MDRD) Non-Af 29 L Glucose 194 H AST 40 H Alkaline Phosphatase 186 H NT-Pro-B Natriuret Pep 23376 H Urine Protein Urine Glucose (UA) 04/16/19 03:24 WBC RBC Hgb Hct RDW Absolute Neuts (auto) Chloride Carbon Dioxide BUN Creatinine Est GFR ( Amer) Est GFR (MDRD) Non-Af Glucose AST Alkaline Phosphatase NT-Pro-B Natriuret Pep Urine Protein 100 H Urine Glucose (UA) 50 H - Diagnostic Test Radiology reviewed: Image reviewed, Reports reviewed Radiology results interpreted by me: 04/16/19 05:34 Chest X-Ray 04/16/19 02:14 IMPRESSION: Mild interstitial edema copyright 2011 [employer]- All Rights Reserved - EKG Interpretation by Me Additional EKG results interpreted by me: 04/16/19 02:43 Sinus mechanism with a rate of 81 bpm. Normal axis. First-degree AV block. Right bundle branch block. Inferolateral ST and T wave changes concerning for ischemia. Some change in compared to prior study in January. Critical Care Note - Critical Care Note Total time excluding time spent on procedures (mins): 40 Discharge - Discharge Clinical Impression: Unstable angina, Congestive heart failure (CHF) Condition: Stable Disposition: [facility] Admitting Provider: Dr. Islas Referrals: MIRACLE REYNA MD [Primary Care Provider] - Follow up as needed
[2019-04-16 02:46] LABS: TROPONIN I 0.077 ng/mL
[2019-04-16] MEDS ORDERED: NITROGLYCERIN 2% OINTMENT 1 GM PACKET TP ONE (02:53)
[2019-04-16] MEDS ORDERED: HEPARIN SOD (PORCINE) 1,000 UNIT/ML 10 ML VIAL IV ONE (02:54)
[2019-04-16] MEDS ORDERED: HEPARIN SODIUM,PORCINE/D5W 25,000 UNIT/250 ML RTUINJ IV PRN (02:54)
[2019-04-16 03:14] LABS: INTERNATIONAL RATION (INR) 1.05; PARTIAL THROMBOPLASTIN TIME 30.7 SEC (23.5-35.8); PROTHROMBIN TIME 13.7 SEC (11.4-15.4)
--- NOTE | 2019-04-16 03:20 | RADIOLOGY REPORT (SQ) ---
EXAM DESCRIPTION: XR CHEST 1 VIEW COMPLETED DATE/TME: 04/16/2019 02:14 CLINICAL HISTORY: 78 years, Female, chest pain COMPARISON: 02/05/2019 chest NUMBER OF VIEWS: 1 TECHNIQUE: Portable chest LIMITATIONS: None. FINDINGS: Heart size is upper limits of normal. Atheromatous change thoracic aorta. Mild diffuse interstitial edema. No pneumothorax IMPRESSION: Mild interstitial edema copyright 2010 [employer]- All Rights Reserved
[2019-04-16 03:33] LABS: APPEARANCE,URINE CLEAR; BILIRUBIN,URINE NEGATIVE (NEGATIVE); COLOR,URINE STRAW; GLUCOSE, URINE 50 mg/dL (NEGATIVE); KETONES,URINE NEGATIVE (NEGATIVE); LEUKOCYTE ESTERASE,URINE NEGATIVE (NEGATIVE); NITRITE,URINE NEGATIVE (NEGATIVE); PROTEIN,URINE 100 mg/dL (NEGATIVE); URINE SPECIFIC GRAVITY 1.012; UROBILINOGEN,URINE NEGATIVE mg/dL (<2.0)
[2019-04-16] MEDS ORDERED: FUROSEMIDE INJ/PF 40 MG/4 ML SDV IV ONE (05:32)
[2019-04-16 05:33] LABS: ABSOLUTE EOSINOPHILS # (AUTO) 0.1 10^3/uL (0.0-0.6); ABSOLUTE LYMPHOCYTES (AUTO) 1.6 10^3/uL (0.5-4.7); ABSOLUTE MONOCYTES (AUTO) 0.5 10^3/uL (0.1-1.4); ABSOLUTE NEUT (AUTO) 9.4 10^3/uL (1.7-8.2); BASOPHILS % (AUTO) 0.4 % (0-2); EOSINOPHILS % (AUTO) 0.8 % (0-6); HEMATOCRIT 27.1 % (36.0-47.0); LYMPHOCYTES % (AUTO) 13.8 % (13-45); MEAN CORPUSCULAR HEMOGLOBIN 30.5 pg (27.0-33.4); MEAN CORPUSCULAR HGB CONC 33.3 g/dL (32.0-36.0); MEAN CORPUSCULAR VOLUME 92 fl (80-97); MONOCYTES % (AUTO) 4.2 % (3-13); PLATELET COUNT 188 10^3/uL (150-450); RED BLOOD COUNT 2.95 10^6/uL (3.72-5.28); RED CELL DISTRIBUTION WIDTH 17.6 % (11.5-14.0); SEGMENTED NEUTROPHILS % (AUTO) 80.8 % (42-78); TOTAL CELLS COUNTED % (AUTO) 100 %; WHITE BLOOD COUNT 11.7 10^3/uL (4.0-10.5)
[2019-04-16] MEDS ORDERED: HEPARIN SOD (PORCINE) 1,000 UNIT/ML 10 ML VIAL IV PRN (05:54)
[2019-04-16 08:03] VITALS: BP 156/75
--- NOTE | 2019-04-16 12:12 | EKG REPORT ---
SEVERITY:- ABNORMAL ECG - SINUS RHYTHM FIRST DEGREE AV BLOCK RIGHT BUNDLE BRANCH BLOCK INFERIOR INFARCT, AGE INDETERMINATE : Confirmed by: Celestine Ruff 16-Apr-2019 12:11:20
== END 2019-04-16 08:25 | disposition short-term general hospital (02) ==
LOC: ER 01:25
DX: I25.110 Atherosclerotic heart disease of native coronary artery with unstable angina pectoris (principal); I11.0 Hypertensive heart disease with heart failure; I50.9 Heart failure, unspecified; R60.9 Edema, unspecified; I44.0 Atrioventricular block, first degree; I45.10 Unspecified right bundle-branch block; I25.2 Old myocardial infarction; R06.02 Shortness of breath; R11.0 Nausea; K21.9 Gastro-esophageal reflux disease without esophagitis; Z79.899 Other long term (current) drug therapy; Z79.82 Long term (current) use of aspirin
CPT/HCPCS: 93005; 96376; 99291; 96374; 96375; 36415; 82553; 82550; 85025; 85610; 85730; 80053; 81001; 84484; 83880; 71045; 93010; J1644 ×2; A9270 ×2; J1940; J2270

== ENCOUNTER 2019-10-01 22:22 | Emergency (ER) | payer MEDICARE, BC ==
[2019-10-01 22:51] LABS: INTERNATIONAL RATION (INR) 1.16; PROTHROMBIN TIME 14.9 SEC (11.4-15.4)
[2019-10-01 22:53] LABS: D-DIMER 0.46 ug/mL (0.00-0.50)
[2019-10-01 22:57] LABS: ABSOLUTE BASOPHILS # (AUTO) 0.1 10^3/uL (0.0-0.2); ABSOLUTE EOSINOPHILS # (AUTO) 0.2 10^3/uL (0.0-0.6); ABSOLUTE MONOCYTES (AUTO) 0.7 10^3/uL (0.1-1.4); ABSOLUTE NEUT (AUTO) 7.1 10^3/uL (1.7-8.2); BASOPHILS % (AUTO) 1.5 % (0-2); EOSINOPHILS % (AUTO) 1.8 % (0-6); HEMATOCRIT 20.8 % (36.0-47.0); LYMPHOCYTES % (AUTO) 19.6 % (13-45); MEAN CORPUSCULAR HEMOGLOBIN 34.5 pg (27.0-33.4); MEAN CORPUSCULAR HGB CONC 34.7 g/dL (32.0-36.0); MEAN CORPUSCULAR VOLUME 99 fl (80-97); MONOCYTES % (AUTO) 6.7 % (3-13); PLATELET COUNT 207 10^3/uL (150-450); RED CELL DISTRIBUTION WIDTH 13.9 % (11.5-14.0); SEGMENTED NEUTROPHILS % (AUTO) 70.4 % (42-78); TOTAL CELLS COUNTED % (AUTO) 100 %; WHITE BLOOD COUNT 10.1 10^3/uL (4.0-10.5)
[2019-10-01 22:59] LABS: ALBUMIN 3.7 g/dL (3.5-5.0); ALKALINE PHOSPHATASE 122 U/L (38-126); ANION GAP 11 (5-19); ASPARTATE AMINO TRANSFERASE 19 U/L (14-36); BILIRUBIN,TOTAL 0.4 mg/dL (0.2-1.3); BLOOD UREA NITROGEN 56 mg/dL (7-20); CARBON DIOXIDE 18 mmol/L (22-30); CHLORIDE 110 mmol/L (98-107); GLUCOSE 133 mg/dL (75-110); HEMOGLOBIN 7.2 g/dL (12.0-15.5); TOTAL PROTEIN 7.1 g/dL (6.3-8.2)
--- NOTE | 2019-10-01 23:01 | RADIOLOGY REPORT (SQ) ---
XR CHEST 1 VIEW EXAM DATE: 10/01/2019 10:28 PM CDT HISTORY: Chest pain. COMPARISON: 04/16/2019 FINDINGS: The heart size is enlarged with mild central pulmonary vascular congestion. No consolidation, pleural effusion, or pneumothorax is seen. IMPRESSION: Mild pulmonary edema pattern, without pleural effusions or focal consolidation.
[2019-10-01] MEDS ORDERED: ONDANSETRON HCL INJ/PF 4 MG/2 ML SDV IV ONE (23:14)
[2019-10-01] MEDS ORDERED: MORPHINE SULFATE 10 MG/ML INJ IV ONE (23:14)
[2019-10-01] MEDS ORDERED: NITROGLYCERIN/D5W 50 MG/250 ML RTUINJ IV PRN (23:15)
[2019-10-01] MEDS ORDERED: NORMAL SALINE 250 ML IV PRN (23:16)
--- NOTE | 2019-10-01 23:22 | ER Document Report ---
ED General - General Chief Complaint: Chest Pain Stated Complaint: CHEST PAIN Time Seen by Provider: 10/01/19 23:04 Primary Care Provider: MIRACLE REYNA MD [Primary Care Provider] - Follow up as needed TRAVEL OUTSIDE OF THE [place] IN LAST 30 DAYS: No - HPI Notes: Patient is a 79-year-old female with an extensive cardiac history, history of unstable angina and CT, who presents to the emergency department for evaluation of chest pain. She states that at 7 PM tonight she describes a chest pain that started while at rest. She states it starts as a heartburn sensation up in her neck and her throat. She then developed chest tightness which radiates across her chest and into her right arm. She has some associated nausea as well as shortness of breath. This is all similar to her cardiac pain in the past. She states that she is also had some leg edema developed over the last 24 hours. Patient notes that she had a heart catheterization performed by Dr. 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 This was recent, but he was unable to stent her at that time. She has anotherinterventional catheterization scheduled for October 18. - Related Data Allergies/Adverse Reactions: hydralazine Allergy (Verified 10/02/19 02:08) Past Medical History - General Information source: Patient - Social History Smoking Status: Never Smoker Frequency of alcohol use: None Drug Abuse: None Family History: Reviewed & Not Pertinent Patient has homicidal ideation: No - Past Medical History Cardiac Medical History: Reports: Hx Congestive Heart Failure, Hx Coronary Artery Disease, Hx Heart Attack, Hx Hypertension Renal/ Medical History: Reports: Hx Renal Insufficiency. Denies: Hx Peritoneal Dialysis Malignancy Medical History: Reports: Hx Bone Cancer, Other - Multiple myeloma GI Medical History: Reports: Hx Gastroesophageal Reflux Disease Past Surgical History: Reports: Hx Orthopedic Surgery - kneex2, back, rotator cuff Review of Systems - Review of Systems Cardiovascular: See HPI Respiratory: See HPI Gastrointestinal: See HPI -: Yes All other systems reviewed and negative Physical Exam - Vital signs Vitals: Resp Pulse Ox 16 96 10/01/19 22:27 10/01/19 22:27 - Notes Notes: This is a pale 79-year-old female who appears her stated age, no acute distress. Vital signs reviewed, please refer to chart. Head is normocephalic, atraumatic. Pupils equal round, reactive to light. Neck is supple without meningismus. Heart is regular rate and rhythm. Lungs are clear to auscultation bilaterally. Abdomen is soft, nontender, normoactive bowel sounds throughout. Extremities without cyanosis, clubbing. +1 pretibial edema noted bilaterally. Posterior calves are nontender. Peripheral pulses are equal. Skin is warm and dry. Patient is awake, alert, neurological exam is nonfocal. Course - Re-evaluation Re-evalutation: 10/01/19 23:21 Patient presents to the emergency department for evaluation. She has chest pain. She has a history of unstable angina. Her symptoms seem consistent with that. She has known coronary artery disease and is awaiting an intervention. She has some relief with sublingual nitroglycerin given in route by EMS. She h ad already been given aspirin. I will give the patient morphine, Zofran, start her on a nitroglycerin drip. Her EKG shows a pause, but otherwise no acute changes. Her hemoglobin is also found to be 7.2. Patient has a history of anemia requiring blood transfusions, likely secondary to her myeloma. Type and cross for 2 units was ordered. Awaiting further information, will likely contact [facility] for admission. Again this patient is a known CAD patient who requires intervention, which is unavailable at our facility. She is stable at this time, we will continue to monitor. 10/02/19 02:50 Patient remains chest pain-free. Her initial troponin was only mildly elevated, second troponin was positive. Patient was started on a heparin drip. She was tolerating transfusion of blood well. Given the fact that she requires intervention, I believe that transfer is most appropriate, patient agrees. I spoke with Dr. Joseph, area field manager on-call at [facility]. She did accept the patient on behalf of Dr. Islas. 10/02/19 02:52 Please note that I did note the report of pulmonary edema per radiology on the patient's chest x-ray. Patient is 95% on room air. She is not in any respiratory distress. She does have a low bicarb, and a mild increase in her renal function. She also will require another IV dye load for stent placement and coronary angiography. I am not inclined to further diurese this patient for the small amount of at this point clinically and significant edema. Patient was notified of this, as well as the need to report any dyspnea as soon as it occurs. - Vital Signs Vital signs: Temp Pulse Resp BP Pulse Ox 98.5 F 54 L 12 146/54 H 100 10/02/19 01:28 10/02/19 02:11 10/02/19 02:11 10/02/19 02:11 10/02/19 02:11 - Laboratory Result Diagrams: 10/01/19 22:32 10/01/19 22:32 Laboratory results interpreted by me: 10/01/19 10/01/19 10/01/19 22:32 22:32 23:37 RBC 2.10 L Hgb 7.2 L Hct 20.8 L MCV 99 H MCH 34.5 H Chloride 110 H Carbon Dioxide 18 L BUN 56 H Creatinine 2.16 H Est GFR ( Amer) 27 L Est GFR (MDRD) Non-Af 22 L Glucose 133 H Crossmatch See Detail - Diagnostic Test Radiology reviewed: Reports reviewed Radiology results interpreted by me: 10/02/19 02:51 Chest X-Ray 10/01/19 22:28 IMPRESSION: Mild pulmonary edema pattern, without pleural effusions or focal consolidation. - EKG Interpretation by Me Additional EKG results interpreted by me: 10/01/19 23:23 Sinus mechanism at 70 with a sinus pause noted. Normal axis. Right bundle branch block. No significant change, with the exception of the pause, when compared to prior study of 04/16/2019 Discharge - Discharge Clinical Impression: NSTEMI (non-ST elevated myocardial infarction) Anemia Qualifiers: Anemia type: unspecified type Qualified Code(s): D64.9 - Anemia, unspecified Condition: Stable Disposition: [facility] Admitting Provider: Dr. Islas Referrals: MIRACLE REYNA MD [Primary Care Provider] - Follow up as needed
[2019-10-02] MEDS ORDERED: HEPARIN SOD (PORCINE) 1,000 UNIT/ML 10 ML VIAL IV ONE (02:28)
[2019-10-02] MEDS ORDERED: HEPARIN SODIUM,PORCINE/D5W 25,000 UNIT/250 ML RTUINJ IV PRN (02:28)
[2019-10-02 03:12] LABS: APPEARANCE,URINE CLEAR; BILIRUBIN,URINE NEGATIVE (NEGATIVE); COLOR,URINE YELLOW; GLUCOSE, URINE 50 mg/dL (NEGATIVE); KETONES,URINE NEGATIVE (NEGATIVE); LEUKOCYTE ESTERASE,URINE TRACE (NEGATIVE); NITRITE,URINE NEGATIVE (NEGATIVE); PROTEIN,URINE 100 mg/dL (NEGATIVE); URINE SPECIFIC GRAVITY 1.011; UROBILINOGEN,URINE NEGATIVE mg/dL (<2.0)
[2019-10-02 03:18] LABS: PARTIAL THROMBOPLASTIN TIME 30.2 SEC (23.5-35.8); PROTHROMBIN TIME 15.3 SEC (11.4-15.4)
--- NOTE | 2019-10-02 04:24 | ER Document Report ---
Doctor's Note Notes: 10/02/19 04:23 Transport has arrived to transfer patient to [facility]. This MD went to the patient's bedside and saw the patient just prior to her being transferred. Patient is alert and oriented x3, states she is not having any chest pain. Patient appears to be stable for transfer.
[2019-10-02 04:59] VITALS: BP 168/81
[2019-10-02] MEDS ORDERED: HEPARIN SOD (PORCINE) 1,000 UNIT/ML 10 ML VIAL IV PRN (05:29)
--- NOTE | 2019-10-03 10:44 | EKG REPORT ---
SEVERITY:- ABNORMAL ECG - SINUS RHYTHM SINUS PAUSE/ARREST WITH ATRIAL ESCAPE VS BLOCKED APC FIRST DEGREE AV BLOCK IVCD, CONSIDER ATYPICAL RBBB BORDERLINE ST DEPRESSION, LATERAL LEADS : Confirmed by: Celestine Ruff 03-Oct-2019 10:44:23
== END 2019-10-02 05:18 | disposition short-term general hospital (02) ==
LOC: ER 22:22
DX: I21.4 Non-ST elevation (NSTEMI) myocardial infarction (principal); D64.9 Anemia, unspecified; R07.9 Chest pain, unspecified; I50.9 Heart failure, unspecified; I25.10 Atherosclerotic heart disease of native coronary artery without angina pectoris; I11.0 Hypertensive heart disease with heart failure; I25.2 Old myocardial infarction
CPT/HCPCS: 93005; 96376; 99285; 96365; 96366; 96368; 86900; 86901; 36415; 36430; 86850; 85025; 85610; 85730; 80053; 81001; 84484; 86920; 85379; 71045; 93010; P9016; J1644 ×2; J2270; J2405; J3490

== ENCOUNTER 2019-12-25 02:25 | Inpatient (IN) | payer MEDICARE, BC ==
[2019-12-25 03:07] LABS: ABSOLUTE EOSINOPHILS # (AUTO) 0.3 10^3/uL (0.0-0.6); ABSOLUTE LYMPHOCYTES (AUTO) 2.4 10^3/uL (0.5-4.7); ABSOLUTE MONOCYTES (AUTO) 0.6 10^3/uL (0.1-1.4); ABSOLUTE NEUT (AUTO) 6.3 10^3/uL (1.7-8.2); BASOPHILS % (AUTO) 0.5 % (0-2); EOSINOPHILS % (AUTO) 2.8 % (0-6); HEMATOCRIT 29.8 % (36.0-47.0); HEMOGLOBIN 9.8 g/dL (12.0-15.5); LYMPHOCYTES % (AUTO) 25.3 % (13-45); MEAN CORPUSCULAR HEMOGLOBIN 32.9 pg (27.0-33.4); MEAN CORPUSCULAR HGB CONC 32.9 g/dL (32.0-36.0); MEAN CORPUSCULAR VOLUME 100 fl (80-97); MONOCYTES % (AUTO) 5.8 % (3-13); PLATELET COUNT 247 10^3/uL (150-450); RED BLOOD COUNT 2.98 10^6/uL (3.72-5.28); RED CELL DISTRIBUTION WIDTH 15.3 % (11.5-14.0); SEGMENTED NEUTROPHILS % (AUTO) 65.6 % (42-78); TOTAL CELLS COUNTED % (AUTO) 100 %; WHITE BLOOD COUNT 9.6 10^3/uL (4.0-10.5)
[2019-12-25 03:29] LABS: ALBUMIN 3.6 g/dL (3.5-5.0); ALKALINE PHOSPHATASE 165 U/L (38-126); ANION GAP 7 (5-19); ASPARTATE AMINO TRANSFERASE 31 U/L (14-36); BILIRUBIN,TOTAL 0.5 mg/dL (0.2-1.3); BLOOD UREA NITROGEN 54 mg/dL (7-20); CALCIUM 9.1 mg/dL (8.4-10.2); CARBON DIOXIDE 21 mmol/L (22-30); CHLORIDE 111 mmol/L (98-107); CREATINE KINASE 71 U/L (30-135); GLUCOSE 143 mg/dL (75-110); POTASSIUM 4.7 mmol/L (3.6-5.0); TOTAL PROTEIN 7.1 g/dL (6.3-8.2)
[2019-12-25 03:40] LABS: CREATINE KINASE MB 2.38 ng/mL (<4.55)
[2019-12-25 03:43] LABS: TROPONIN I 0.049 ng/mL
--- NOTE | 2019-12-25 05:19 | RADIOLOGY REPORT (SQ) ---
EXAM DESCRIPTION: XR CHEST 1 VIEW COMPLETED DATE/TME: 12/25/2019 00:00 CLINICAL HISTORY: 79 years, Female, chest pain COMPARISON: 10/01/2019 chest NUMBER OF VIEWS: 1 TECHNIQUE: Portable chest LIMITATIONS: None. FINDINGS: Cardiomegaly. Atheromatous change thoracic aorta. Osteopenia. Postsurgical change right shoulder. Lungs clear. No pneumothorax IMPRESSION: Cardiomegaly. Lungs are clear copyright 2010 [employer]- All Rights Reserved
--- NOTE | 2019-12-25 06:35 | ER Document Report ---
ED General - General Chief Complaint: Chest Pain Stated Complaint: CHEST PAIN Primary Care Provider: MIRACLE REYNA MD [Primary Care Provider] - Follow up as needed TRAVEL OUTSIDE OF THE [place] IN LAST 30 DAYS: No - HPI Notes: 79-year-old female history of CAD with stents last stent placed in September 2019, hypertension, CKD, multiple myeloma presents with chest pain. Patient says she has had chest pain intermittently over the past few days and was taken nitroglycerin at home which is resolved her pain. Pain became more severe at approximately 8 PM prior to presentation to the ED but was also relieved by nitroglycerin. Patient took 4 baby aspirin prior to arrival. Patient says she has had similar pain in the past with her angina. Describes pain as sharp substernal and left-sided chest pain without radiation or associated symptoms. Patient denies any shortness of breath, syncope, dizziness, lower extremity edema, pleuritic chest pain, DVT/PE/hypercoagulability history. Patient also h ad chest pain approximately 1 week ago and was in outside hospital but did not have any stress test done at that time. Patient/stress was approximately 1 year ago. - Related Data Allergies/Adverse Reactions: amlodipine Allergy (Verified 12/25/19 03:03) hydralazine Allergy (Verified 10/02/19 02:08) Past Medical History - General Information source: Patient - Social History Smoking Status: Never Smoker Frequency of alcohol use: None Drug Abuse: None Family History: Reviewed & Not Pertinent Patient has homicidal ideation: No - Past Medical History Cardiac Medical History: Reports: Hx Congestive Heart Failure, Hx Coronary Artery Disease, Hx Heart Attack, Hx Hypertension Renal/ Medical History: Reports: Hx Renal Insufficiency. Denies: Hx Peritoneal Dialysis Malignancy Medical History: Reports: Hx Bone Cancer GI Medical History: Reports: Hx Gastroesophageal Reflux Disease Past Surgical History: Reports: Hx Orthopedic Surgery - kneex2, back, rotator cuff Review of Systems - Review of Systems Notes: REVIEW OF SYSTEMS: CONSTITUTIONAL : Denies fever, chills, or sweats. EENT: Denies recent cold/sinus symptoms, denies throat pain CARDIOVASCULAR: + chest pain, -JEN RESPIRATORY: Denies cough, denies shortness of breath. GASTROINTESTINAL: Denies abdominal pain, nausea/vomiting. GENITOURINARY: Denies difficulty urinating, painful urination. FEMALE GENITOURINARY: Denies abnormal vaginal bleeding, vaginal discharge. MUSCULOSKELETAL: Denies neck pain, back pain. SKIN: Denies rash or skin lesions. HEMATOLOGIC : Denies easy bruising or bleeding. LYMPHATIC: Denies swollen, enlarged glands. NEUROLOGICAL: Denies headache, denies change in gait. PSYCHIATRIC: Denies anxiety or stress or depression. Physical Exam - Vital signs Vitals: Resp Pulse Ox 17 96 12/25/19 02:28 12/25/19 02:28 - Notes Notes: PHYSICAL EXAMINATION: GENERAL: Very well-appearing alert talkative comfortable appearing elderly woman appearing younger than stated age in no acute distress HEAD: Atraumatic, normocephalic. EYES: Pupils equal round and appropriate constriction, sclera anicteric, conjunctiva are normal. ENT: nares patent, moist mucous membranes. NECK: Normal range of motion, supple without lymphadenopathy LUNGS: Breath sounds clear to auscultation bilaterally and equal. No wheezes rales or rhonchi. HEART: Regular rate and rhythm with systolic murmur greatest over right upper sternal border ABDOMEN: Soft, nontender, no guarding, no masses, no CVAT EXTREMITIES: Normal range of motion, no pitting or edema. No cyanosis. NEUROLOGICAL: Awake, alert, conversing appropriately, moves all extremities spontaneously. PSYCH: Normal mood, normal affect. SKIN: Warm, Dry, normal turgor, no rashes or lesions noted. Course - Re-evaluation Re-evalutation: 12/25/19 06:36 Chest pain concerning for unstable angina. EKG is non-dynamic from prior EKGs. patient without any chest pain in the ED. First troponin positive. Although patient at risk for PE given cancer history, PE is not consistent with episodic pain that is fully relieved by the nitroglycerin without any acute precipitating factors or DVT symptoms. No indication to rule out PE at this time, however if clinical picture should change this should be reevaluated on observation unit. Discussed case with Dr. Anthony who has accepted patient to telemetry observation unit and will turn over her care to the day hospitalist. - Vital Signs Vital signs: Temp Pulse Resp BP Pulse Ox 97.9 F 15 190/79 H 96 12/25/19 03:00 12/25/19 05:02 12/25/19 05:02 12/25/19 05:02 - Laboratory Result Diagrams: 12/25/19 02:56 12/25/19 02:56 Laboratory results interpreted by me: 12/25/19 12/25/19 02:56 02:56 RBC 2.98 L Hgb 9.8 L Hct 29.8 L MCV 100 H RDW 15.3 H Chloride 111 H Carbon Dioxide 21 L BUN 54 H Creatinine 1.82 H Est GFR ( Amer) 33 L Est GFR (MDRD) Non-Af 27 L Glucose 143 H Alkaline Phosphatase 165 H - EKG Interpretation by Me Additional EKG results interpreted by me: 12/25/19 06:39 Heart rate 74, sinus rhythm, right bundle branch block, ST elevations in aVR unchanged from prior EKGs, ST depressions in several leads not significantly changed from old EKGs Discharge - Discharge Clinical Impression: Chest pain Qualifiers: Chest pain type: unspecified Qualified Code(s): R07.9 - Chest pain, unspecified CAD (coronary artery disease) Qualifiers: Coronary Disease-Associated Artery/Lesion type: unspecified vessel or lesion type [place] vs. transplanted heart: [place] heart Associated angina: angina presence unspecified Qualified Code(s): I25.10 - Atherosclerotic heart disease of [place] coronary artery without angina pectoris Multiple myeloma Qualifiers: Multiple myeloma remission status: unspecified Qualified Code(s): C90.00 - Multiple myeloma not having achieved remission Disposition: ADMITTED OBSERVATION Admitting Provider: Raj (Hospitalist) Unit Admitted: Telemetry Referrals: MIRACLE REYNA MD [Primary Care Provider] - Follow up as needed
[2019-12-25] MEDS ORDERED: CARVEDILOL 3.125 MG TABLET PO SCH (10:00)
[2019-12-25] MEDS ORDERED: ACETAMINOPHEN 325 MG TABLET PO PRN (10:02)
--- NOTE | 2019-12-25 10:33 | PDOC H&P ---
History of Present Illness Admission Date/PCP: 12/25/19 06:53 Patient complains of: Chest pain History of Present Illness: ANSHUL DEVINE is a 79 year old female who was discharged from [facility] 8 days ago. She has a complex cardiac history. She had myocardial infarction in January 2019. 2 stents were placed in April 2019. Most recently 3 stents were placed in September of this year. She went to visit her chief of pediatric urology for follow- up approximately 10 days ago. Because of her high blood pressure they referred her to [facility]. She was admitted for 2 days and was discharged on Friday. She was started on labetalol 200 mg twice a day, chlorthalidone 25 mg daily and clonidine 0.1 mg 3 times a day. She states that she was started on all 3 at the same time at those doses. She stopped the medications because she felt extremely tired and could not get out of her only. She was not sure which particular medicine was responsible and just stopped them. She states she has been on carvedilol in the past but it caused her rate to go too slow. Her brought her prescription bottles and it was 6.25 mg twice a day. She is currently pain-free. Her first troponin was 0.049 and then 0.053 with her third troponin being 0.048. This may all be related to hypertension. The patient will be admitted. With her cardiac history she is very high risk. We will need to monitor her closely. Cardiology will be seeing the patient. Past Medical History Cardiac Medical History: Reports: Congestive Heart Failure, Coronary Artery Disease, Myocardial Infarction, Hypertension Pulmonary Medical History: Denies: Chronic Obstructive Pulmonary Disease (COPD), Respiratory Failure, Sleep Apnea EENT Medical History: Reports: None Neurological Medical History: Denies: Ischemic CVA, Migraine Endocrine Medical History: Reports: Hypothyroidism Denies: Diabetes Mellitus Type 2 Renal/ Medical History: Reports: Chronic Kidney Disease Malignancy Medical History: Reports: Other - Multiple myeloma GI Medical History: Reports: Gastroesophageal Reflux Disease Psychiatric Medical History: Denies: Alcohol Dependency, Substance Abuse, Tobacco Dependency Traumatic Medical History: Reports: None Hematology: Reports: Anemia Infectious Medical History: Reports: None Past Surgical History Past Surgical History: Reports: Cardiac Catheterization, Orthopedic Surgery - kneex2, back, rotator cuff Social History Information Source: Patient Lives with: Spouse/Significant other Smoking Status: Never Smoker Electronic Cigarette use?: No Frequency of Alcohol Use: None Hx Recreational Drug Use: No Hx Prescription Drug Abuse: No - Advance Directive Resuscitation Status: Full Code Surrogate healthcare decision maker:: Her Elías would be the primary decision-maker Family History Family History: CAD, DM, Hypertension Parental Family History Reviewed: Yes Children Family History Reviewed: Yes Sibling(s) Family History Reviewed.: Yes Medication/Allergy Home Medications: Levothyroxine Sodium 88 mcg PO Q6AM 12/24/16 Alprazolam [Xanax 0.5 mg Tablet] 0.5 mg PO HSP PRN 12/25/19 Aspirin [Aspirin 81 mg Chewable Tablet] 81 mg PO DAILY 12/25/19 Atorvastatin Calcium [Lipitor 80 mg Tablet] 80 mg PO QHS 12/25/19 Clopidogrel Bisulfate [Plavix 75 mg Tablet] 75 mg PO DAILY 12/25/19 Gabapentin [Neurontin 300 mg Capsule] 300 mg PO QHS 12/25/19 Isosorbide Mononitrate [Imdur 60 mg Tablet.er] 120 mg PO DAILY 12/25/19 Olmesartan Medoxomil [Benicar] 40 mg PO DAILY 12/25/19 Pantoprazole Sodium [Protonix [address] Tablet] 40 mg PO Q6AM 12/25/19 Allergies/Adverse Reactions: amlodipine Allergy (Verified 12/25/19 03:03) hydralazine Allergy (Verified 10/02/19 02:08) Review of Systems All systems: reviewed and no additional remarkable complaints except as stated Cardiovascular: PRESENT: chest pain, other - Claudication-cramping in her left calf after walking any distance. Psychiatric: PRESENT: anxiety Physical Exam Vital Signs: Temp Pulse Resp BP Pulse Ox 98.0 F 62 18 196/65 H 98 12/25/19 08:53 12/25/19 08:53 12/25/19 08:53 12/25/19 08:53 12/25/19 08:53 Intake & Output 12/24/19 12/25/19 12/26/19 06:59 06:59 06:59 Weight 79.379 kg 78.1 kg General appearance: PRESENT: no acute distress, cooperative, well-developed, we ll-nourished Head exam: PRESENT: atraumatic, normocephalic Eye exam: PRESENT: conjunctiva pink, EOMI, PERRLA. ABSENT: scleral icterus Ear exam: PRESENT: normal external ear exam. ABSENT: bleeding, drainage Mouth exam: PRESENT: moist, tongue midline Teeth exam: PRESENT: poor dentation Neck exam: ABSENT: carotid bruit, JVD, lymphadenopathy, meningismus Respiratory exam: PRESENT: clear to auscultation chip, symmetrical, unlabored. ABSENT: chest wall tenderness, prolonged expiratory phas, rales, rhonchi, tachypnea, wheezes Cardiovascular exam: PRESENT: RRR, +S1, +S2. ABSENT: bradycardia, diastolic murmur, irregular rhythm, systolic murmur, tachycardia Pulses: PRESENT: other - Right dorsalis pedis pulses 2+. Left dorsalis pedis pulse is 1+ or less. GI/Abdominal exam: PRESENT: normal bowel sounds, soft. ABSENT: distended, guarding, tenderness Rectal exam: PRESENT: deferred Gentrourinary exam: ABSENT: indwelling catheter Extremities exam: PRESENT: full ROM. ABSENT: calf tenderness, pedal edema Musculoskeletal exam: PRESENT: ambulatory, normal inspection. ABSENT: deformity, dislocation Neurological exam: PRESENT: alert, awake, oriented to person, oriented to place, oriented to time, oriented to situation, CN II-XII grossly intact. ABSENT: altered, motor sensory deficit Psychiatric exam: PRESENT: appropriate affect, normal mood. ABSENT: agitated, anxious Focused psych exam: ABSENT: delusional, paranoid, restlessness Skin exam: PRESENT: dry, normal color, warm. ABSENT: rash Results Laboratory Results: 12/25/19 02:56 12/25/19 02:56 12/25/19 12/25/19 02:56 02:56 WBC 9.6 RBC 2.98 L Hgb 9.8 L Hct 29.8 L MCV 100 H MCH 32.9 MCHC 32.9 RDW 15.3 H Plt Count 247 Seg Neutrophils % 65.6 Sodium 139.4 Potassium 4.7 Chloride 111 H Carbon Dioxide 21 L Anion Gap 7 BUN 54 H Creatinine 1.82 H Est GFR ( Amer) 33 L Glucose 143 H Calcium 9.1 Total Bilirubin 0.5 AST 31 Alkaline Phosphatase 165 H Total Protein 7.1 Albumin 3.6 12/25/19 12/25/19 12/25/19 02:56 02:56 05:51 Creatine Kinase 71 CK-MB (CK-2) 2.38 Troponin I 0.049 0.053 Impressions: Chest X-Ray 12/25/19 00:00 IMPRESSION: Cardiomegaly. Lungs are clear copyright 2010 [employer]- All Rights Reserved Assessment and Plan - Diagnosis (1) Unstable angina Is this a current diagnosis for this admission?: Yes Plan: The patient had 3 separate episodes of chest pressure that were very similar to her myocardial infarction in January 2019. All 3 episodes were relieved with a combination of sublingual nitroglycerin and baby aspirin. No chest pain was relieved with those medications. She was chest pain-free when she presented to the emergency department. She was not given any medication despite her elevated blood pressure. Initial troponins were 0.049, 0.053 and 0.048. EKG showed some lateral ST depressions that were seen on her previous EKG in September. As the patient is currently pain-free we will hold off on nitroglycerin paste. She does take Imdur and I will continue that medication. Sublingual nitroglycerin will be available as well. (2) CAD (coronary artery disease) Qualifiers: Coronary Disease-Associated Artery/Lesion type: [place] artery [place] vs. transplanted heart: [place] heart Associated angina: with unstable angina Qualified Code(s): I25.110 - Atherosclerotic heart disease of [place] coronary artery with unstable angina pectoris Is this a current diagnosis for this admission?: Yes Plan: The patient exhibited unstable angina last night. It is currently under control. She will be seen by cardiology in the morning. I am going to reintroduce carvedilol. She will continue her Plavix and aspirin. She is also on atorvastatin and Imdur. (3) Hypertension Qualifiers: Hypertension type: essential hypertension Qualified Code(s): I10 - Essential (primary) hypertension Is this a current diagnosis for this admission?: Yes Plan: Blood pressure has been difficult to control. I think doubling her angiotensin receptor erik might aggravate her kidneys. I do not believe the chlorthalidone was part of the problem and so I will resume her chlorthalidone. Because of her adverse reaction to hydralazine and amlodipine I think would be reasonable to introduce clonidine but at a much lower dose and possibly transdermal to see if this helps her pressure. If her blood pressure continues to be elevated then we may need to consider nitroglycerin therapy initially. (4) Claudication Is this a current diagnosis for this admission?: Yes Plan: When palpating her dorsalis pedis pulses there was an obvious difference with the left foot being less pronounced. I then asked her if she ever gets crampy pain in her leg when walking and she immediately said yes. It is likely that she has peripheral arterial disease and is experiencing some claudication. It is currently stable and as we are treating her atherosclerotic heart disease further evaluation and treatment of what is likely peripheral arterial disease can be carried out as an outpatient. (5) Stage III chronic kidney disease Is this a current diagnosis for this admission?: Yes Plan: We will monitor her renal function. Especially considering medication changes. She does see Dr. Brown and if the patient is still present on Friday I will have nephrology see her as well. I will institute gentle IV fluids as well and monitor her intake and output. (6) Anemia in chronic kidney disease Qualifiers: Chronic kidney disease stage: stage 3 (moderate) Qualified Code(s): N18.3 - Chronic kidney disease, stage 3 (moderate); D63.1 - Anemia in chronic kidney disease Is this a current diagnosis for this admission?: Yes Plan: The patient states that her hemoglobin can get quite low. It was 9.8. We will recheck it tomorrow. With a hemoglobin around 10 it is unlikely that it contributed to any angina. (7) Anxiety Is this a current diagnosis for this admission?: Yes Plan: Continue alprazolam as needed (8) Hypothyroidism Qualifiers: Hypothyroidism type: unspecified Qualified Code(s): E03.9 - Hypothyroidism, unspecified Is this a current diagnosis for this admission?: Yes Plan: Continue levothyroxine 88 mcg daily. (9) Multiple myeloma Qualifiers: Multiple myeloma remission status: in remission Qualified Code(s): C90.01 - Multiple myeloma in remission Is this a current diagnosis for this admission?: Yes Plan: The patient states that her multiple myeloma is in remission. 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 It certainly could be related to her chronic kidney disease. No specific treatment for myeloma at this time. - Time Time Spent with patient: 35 or more minutes Medications reviewed and adjusted accordingly: Yes Anticipated Discharge Disposition: Home, Self Care Anticipated Discharge Timeframe: within 72 hours
--- NOTE | 2019-12-25 10:44 | EKG REPORT ---
SEVERITY:- ABNORMAL ECG - SINUS RHYTHM RIGHT BUNDLE BRANCH BLOCK BORDERLINE ST DEPRESSION, LATERAL LEADS : Confirmed by: Michael Perez MD 25-Dec-2019 10:43:59
[2019-12-25] MEDS: CARVEDILOL 3.125 MG TABLET PO SCH ×2 (10:52→22:39)
[2019-12-25] MEDS: CLOPIDOGREL BISULFATE 75 MG TABLET PO SCH (10:52)
[2019-12-25] MEDS ORDERED: ISOSORBIDE MONONITRATE 60 MG TAB.ER.24H PO SCH (11:00)
[2019-12-25] MEDS: VALSARTAN 40 MG TABLET PO SCH ×2 (11:52→22:40)
[2019-12-25] MEDS: HEPARIN SOD (PORCINE) 5,000 UNIT/ML 1 ML VIAL SUBCUT SCH ×2 (13:08→22:41)
[2019-12-25] MEDS: DOCUSATE SODIUM 100 MG CAPSULE PO SCH (17:12)
[2019-12-25] MEDS ORDERED: HYDROCHLOROTHIAZIDE 12.5 MG TABLET PO ONE (18:30)
[2019-12-25] MEDS: NITROGLYCERIN 0.4 MG/TAB 25 TAB/BOTTLE SL PRN ×2 (18:51→18:56)
[2019-12-25] MEDS ORDERED: NITROGLYCERIN 2% OINTMENT 1 GM PACKET TP ONE (19:06)
[2019-12-25] MEDS ORDERED: NITROGLYCERIN 2% OINTMENT 1 GM PACKET ONE (19:09)
[2019-12-25] MEDS ORDERED: CLONIDINE 0.1 MG/24 HR PATCH.TDWK TD SCH (19:10)
[2019-12-25] MEDS: ALPRAZOLAM 0.5 MG TABLET PO PRN (19:11)
[2019-12-25] MEDS ORDERED: CLONIDINE 0.1 MG/24 HR PATCH.TDWK ONE (19:23)
[2019-12-25] MEDS ORDERED: VALSARTAN 40 MG TABLET PO ONE (20:30)
[2019-12-25] MEDS: NORMAL SALINE 1000 ML 1,000 ML IV PRN (20:35)
[2019-12-25] MEDS: ASPIRIN 81 MG TABLET, ENT COATED PO SCH (22:39)
[2019-12-25] MEDS: GABAPENTIN 300 MG CAPSULE PO SCH (22:39)
[2019-12-25] MEDS: ATORVASTATIN CALCIUM 80 MG TABLET PO SCH (22:40)
[2019-12-26] MEDS: NITROGLYCERIN 2% OINTMENT 1 GM PACKET TP SCH ×5 (00:30→23:59)
[2019-12-26] MEDS: PANTOPRAZOLE SODIUM 40 MG TABLET.DR PO SCH (06:16)
[2019-12-26] MEDS: HEPARIN SOD (PORCINE) 5,000 UNIT/ML 1 ML VIAL SUBCUT SCH ×3 (06:16→21:52)
[2019-12-26] MEDS: LEVOTHYROXINE SODIUM 0.088 MG TABLET PO SCH (06:16)
[2019-12-26 06:32] LABS: ABSOLUTE EOSINOPHILS # (AUTO) 0.3 10^3/uL (0.0-0.6); ABSOLUTE LYMPHOCYTES (AUTO) 2.4 10^3/uL (0.5-4.7); ABSOLUTE MONOCYTES (AUTO) 0.6 10^3/uL (0.1-1.4); BASOPHILS % (AUTO) 0.5 % (0-2); EOSINOPHILS % (AUTO) 3.2 % (0-6); HEMATOCRIT 28.3 % (36.0-47.0); HEMOGLOBIN 9.5 g/dL (12.0-15.5); LYMPHOCYTES % (AUTO) 29.2 % (13-45); MEAN CORPUSCULAR HEMOGLOBIN 33.4 pg (27.0-33.4); MEAN CORPUSCULAR HGB CONC 33.7 g/dL (32.0-36.0); MEAN CORPUSCULAR VOLUME 99 fl (80-97); MONOCYTES % (AUTO) 7.1 % (3-13); PLATELET COUNT 229 10^3/uL (150-450); RED BLOOD COUNT 2.85 10^6/uL (3.72-5.28); RED CELL DISTRIBUTION WIDTH 15.4 % (11.5-14.0); TOTAL CELLS COUNTED % (AUTO) 100 %; WHITE BLOOD COUNT 8.4 10^3/uL (4.0-10.5)
[2019-12-26 08:11] LABS: ALBUMIN 3.4 g/dL (3.5-5.0); ANION GAP 8 (5-19); BLOOD UREA NITROGEN 49 mg/dL (7-20); CALCIUM 8.7 mg/dL (8.4-10.2); CARBON DIOXIDE 19 mmol/L (22-30); CHLORIDE 112 mmol/L (98-107); GLUCOSE 102 mg/dL (75-110); PHOSPHORUS 5.1 mg/dL (2.5-4.5); POTASSIUM 4.7 mmol/L (3.6-5.0)
--- NOTE | 2019-12-26 08:29 | PDOC CONSULTATION ---
Consultation Consult Date: 12/26/19 Attending physician:: SARA PARIS Provider Consulted: SMITH FRASER Consult reason:: CAD History of Present Illness Admission Date/PCP: 12/25/19 10:03 History of Present Illness: ANSHUL DEVINE is a 79 year old female with history of coronary artery disease status post NE in April 2019 treated with 2 overlapping drug-eluting stents to the proximal and mid LAD with subsequent unstable angina in September 2019 treated with overlapping 3 drug-eluting stents to the mid left circumflex and residual disease in the dominant RCA with a mid 50% stenosis as well as mid PDA 85% stenosis with an ejection fraction of 55% with grade 2 diastolic dysfunction in September 2019 at [facility], hypertension, hyperlipidemia, hypothyroidism, CVA, multiple myeloma in remission since 2017 and prediabetes who is consulted to our service for evaluation of recurrent chest pain. The patient was recently discharged from [facility] after she was admitted for only 1 day due to severe hypertension as described in the note by Dr. Verde. Unfortunately, she left AMA. The patient describes recurrent episodes of chest pain that are sharp in nature, of sudden onset, without known triggers, localized to the substernal region, without radiation, lasting until she takes 1 or 2 nitroglycerin sublingually, and not associated with palpitations, diaphoresis, shortness of breath, syncope or presyncope. She states that her symptoms recur usually at the end of the day when she is at rest and never during physical activities. She actually is able to mop and vacuum her house without any chest discomfort. She denies any triggers for her pain. Since admission she has remained hemodynamically stable however she stated that she had her index sharp chest pain last night but just walking to the bathroom and without any other associated symptoms. Of note, her current pain is very different from the pain that prompted her intervention back in April 2019 which she described as a burning sensation in the upper substernal area radiating to both arms and associated with shortness of breath. This morning she is asymptomatic and feeling well. Her telemetry shows sinus bradycardia and her EKG is are consistent with sinus bradycardia, right bundle branch block without any diagnostic ischemic changes. Her cardiac troponins have remained detectable but indeterminate and now downtrending. Physical exam on 12/26/2019: GENERAL: Pleasant and conversational. Oriented x3 with normal mood. Not in acute distress. Well groomed and well developed. HEENT: Normocephalic, atraumatic. Pupils equal. Sclerae anicteric. Oropharynx moist. NECK: No JVD. No carotid bruits. LUNGS: Clear to auscultation bilaterally. Normal respiratory effort without the use of accessory muscles or intercostal retractions. CARDIOVASCULAR: Regular rate and rhythm, normal S1 and S2 without murmurs, rubs, or gallops. PMI not displaced. ABDOMEN: No masses or tenderness to palpation. No bruit. No splenomegaly or hepatomegaly. No abdominal aorta bruit noted. EXTREMITIES: No edema, no cyanosis, no clubbing. +2 pulses femoral and pedal pulses bilaterally. SKIN: No lesions or rashes. MUSCULOSKELETAL: No chest tenderness to palpation. NEUROLOGIC: Nonfocal. No gross sensory or motor deficits bilateral upper or lower extremities. Cardiac studies: C in April 2019 at [facility]: -LAD: Diffusely disease with a proximal 75% stenosis and mid 90% stenosis--> overlapping SONU 3.5 mm x 38 mm followed by 2.5 mm x 32 mm SONU. -Left circumflex: Proximal and mid 85% stenosis. -RCA: Dominant vessel. Mid 50% stenosis. LHC in September 2019 at [facility]: -LAD patent. -Left circumflex: Proximal to mid 85% stenosis--> overlapping 2.5 mm x 20 mm SONU followed by 2.5 mm x 16 mm SONU followed by 2.5 mm x 12 mm SONU. -RCA: Dominant vessel. Proximal to mid 50% stenosis. -PDA: 85% stenosis in the mid vessel. Echocardiogram at [facility] in September 2019: -Left ventricle is normal in size. -Decrease in transit systolic thickening of the lateral wall on some views. -Grade 2 diastolic dysfunction. -Elevated LVEDP. -EF 55%. Past Medical History Cardiac Medical History: Reports: Congestive Heart Failure, Coronary Artery Disease, Myocardial Infarction, Hypertension Pulmonary Medical History: Denies: Chronic Obstructive Pulmonary Disease (COPD), Respiratory Failure, Sleep Apnea EENT Medical History: Reports: None Neurological Medical History: Denies: Ischemic CVA, Migraine Endocrine Medical History: Reports: Hypothyroidism Denies: Diabetes Mellitus Type 2 Renal/ Medical History: Reports: Chronic Kidney Disease Malignancy Medical History: Reports: Bone Cancer, Other - Multiple myeloma GI Medical History: Reports: Gastroesophageal Reflux Disease Psychiatric Medical History: Denies: Alcohol Dependency, Depression, Substance Abuse, Tobacco Dependency Traumatic Medical History: Reports: None Hematology: Reports: Anemia Infectious Medical History: Reports: None Past Surgical History Past Surgical History: Reports: Cardiac Catheterization, Orthopedic Surgery - kneex2, back, rotator cuff Social History Lives with: Spouse/Significant other Smoking Status: Never Smoker Electronic Cigarette use?: No Frequency of Alcohol Use: None Hx Recreational Drug Use: No Hx Prescription Drug Abuse: No - Advance Directive Resuscitation Status: Full Code Family History Family History: CAD, DM, Hypertension Parental Family History Reviewed: Yes Children Family History Reviewed: Yes Sibling(s) Family History Reviewed.: Yes Medication/Allergy Home Medications: Levothyroxine Sodium 88 mcg PO Q6AM 12/24/16 Alprazolam [Xanax 0.5 mg Tablet] 0.5 mg PO HSP PRN 12/25/19 Aspirin [Aspirin 81 mg Chewable Tablet] 81 mg PO DAILY 12/25/19 Atorvastatin Calcium [Lipitor 80 mg Tablet] 80 mg PO QHS 12/25/19 Clopidogrel Bisulfate [Plavix 75 mg Tablet] 75 mg PO DAILY 12/25/19 Gabapentin [Neurontin 300 mg Capsule] 300 mg PO QHS 12/25/19 Isosorbide Mononitrate [Imdur 60 mg Tablet.er] 120 mg PO DAILY 12/25/19 Olmesartan Medoxomil [Benicar] 40 mg PO DAILY 12/25/19 Pantoprazole Sodium [Protonix [address] Tablet] 40 mg PO Q6AM 12/25/19 Allergies/Adverse Reactions: amlodipine Allergy (Verified 12/25/19 03:03) hydralazine Allergy (Verified 10/02/19 02:08) Physical Exam Vital Signs: Temp Pulse Resp BP Pulse Ox 97.6 F 50 L 18 148/68 H 97 12/26/19 04:17 12/26/19 04:17 12/26/19 04:17 12/26/19 04:17 12/26/19 04:17 Intake & Output 12/24/19 12/25/19 12/26/19 06:59 06:59 06:59 Intake Total 676 Balance 676 Weight 79.379 kg 78.8 kg Results Laboratory Results: 12/26/19 06:12 12/26/19 06:12 WBC 8.4 RBC 2.85 L Hgb 9.5 L Hct 28.3 L MCV 99 H MCH 33.4 MCHC 33.7 RDW 15.4 H Plt Count 229 Seg Neutrophils % 60.0 12/25/19 12/25/19 12/25/19 02:56 02:56 05:51 Creatine Kinase 71 CK-MB (CK-2) 2.38 Troponin I 0.049 0.053 12/25/19 12/25/19 11:44 18:10 Creatine Kinase CK-MB (CK-2) Troponin I 0.048 0.040 Impressions: Chest X-Ray 12/25/19 00:00 IMPRESSION: Cardiomegaly. Lungs are clear copyright 2011 [employer]- All Rights Reserved 12/26/19 06:12 MCV 99 fl (80-97) H 12/26/19 06:12 MCH 33.4 pg (27.0-33.4) 12/26/19 06:12 MCHC 33.7 g/dL (32.0-36.0) 12/26/19 06:12 RDW 15.4 % (11.5-14.0) H 12/26/19 06:12 Seg Neutrophils % 60.0 % (42-78) 12/26/19 06:12 Chloride 111 mmol/L (98-107) H 12/25/19 02:56 Carbon Dioxide 21 mmol/L (22-30) L 12/25/19 02:56 Anion Gap 7 (5-19) 12/25/19 02:56 Est GFR ( Amer) 33 (>60) L 12/25/19 02:56 Glucose 143 mg/dL (75-110) H 12/25/19 02:56 Calcium 9.1 mg/dL (8.4-10.2) 12/25/19 02:56 Total Bilirubin 0.5 mg/dL (0.2-1.3) 12/25/19 02:56 AST 31 U/L (14-36) 12/25/19 02:56 Alkaline Phosphatase 165 U/L (38-126) H 12/25/19 02:56 Total Protein 7.1 g/dL (6.3-8.2) 12/25/19 02:56 Albumin 3.6 g/dL (3.5-5.0) 12/25/19 02:56 12/25/19 12/25/19 12/25/19 02:56 02:56 05:51 Creatine Kinase 71 CK-MB (CK-2) 2.38 Troponin I 0.049 0.053 12/25/19 12/25/19 11:44 18:10 Creatine Kinase CK-MB (CK-2) Troponin I 0.048 0.040 Current Medication List Generic Name Dose Route Start Last Admin Trade Name Freq PRN Reason Stop Dose Admin Acetaminophen 650 mg 12/25/19 10:02 12/25/19 22:40 Tylenol 325 Mg Tablet PO 01/24/20 10:01 650 mg Q4HP PRN Administration FOR PAIN OR TEMP Al Hydrox/Mg Hydrox/Simethicone 15 ml 12/25/19 10:12 Maalox Plus Susp 30 Udcup PO 01/24/20 10:11 Q6HP PRN HEARTBURN Alprazolam 0.5 mg 12/25/19 10:12 12/25/19 19:11 Xanax 0.5 Mg Tablet PO 01/01/20 10:11 0.5 mg BIDP PRN Administration ANXIETY Aspirin 81 mg 12/25/19 22:00 12/25/19 22:39 Ecotrin 81 Mg Ec Tablet PO 01/24/20 21:59 81 mg QHS JOSE Administration Atorvastatin Calcium 80 mg 12/25/19 22:00 12/25/19 22:40 Lipitor 80 Mg Tablet PO 01/24/20 21:59 80 mg QHS JOSE Administration Carvedilol 3.125 mg 12/25/19 11:00 12/25/19 22:39 Coreg 3.125 Mg Tablet PO 01/24/20 10:59 3.125 mg Q12 JOSE Administration Chlorthalidone 25 mg 12/26/19 10:00 [place] 25 Mg Tablet PO 01/25/20 09:59 DAILY JOSE Clonidine HCl 1 each 12/25/19 19:10 12/25/19 19:44 Catapres-Tts 1 (0.1 Mg/24 Hr) Transderm Patch TD 01/24/20 19:09 Not Given Sa@10 JOSE Clopidogrel Bisulfate 75 mg 12/25/19 10:00 12/25/19 10:52 Plavix 75 Mg Tablet PO 01/24/20 09:59 75 mg DAILY JOSE Administration Docusate Sodium 100 mg 12/25/19 18:00 12/25/19 17:12 Colace 100 Mg Capsule PO 01/24/20 17:59 100 mg BID JOSE Administration Gabapentin 300 mg 12/25/19 22:00 12/25/19 22:39 Neurontin 300 Mg Capsule PO 01/24/20 21:59 300 mg QHS JOSE Administration Heparin Sodium (Porcine) 5,000 unit 12/25/19 14:00 12/26/19 06:16 Heparin Inj 5,000 Units/Ml 1 Ml Vial SUBCUT 01/24/20 13:59 Not Given Q8 JOSE Sodium Chloride 1,000 mls @ 50 mls/hr 12/25/19 18:59 12/25/19 20:35 Nacl 0.9% 1000 Ml Iv Soln IV 01/24/20 18:58 50 mls/hr CONTINUOUS PRN Administration THIS MED IS NOT "PRN" Levothyroxine Sodium 0.088 mg 12/26/19 06:00 12/26/19 06:16 Synthroid 0.088 Mg Tablet PO 01/25/20 05:59 0.088 mg Q6AM JOSE Administration Nitroglycerin 1 tab 12/25/19 09:59 12/25/19 18:56 Nitrostat 0.4 Mg (1/150 Gr) Tabs 25/Bottle SL 01/24/20 09:58 1 tab Q5MP PRN Administration FOR CHEST PAIN Nitroglycerin 1 gm 12/26/19 00:00 12/26/19 06:16 Nitrol 2% Ointment 1gm Packet TP 01/25/20 00:00 1 gm Q6 JOSE Administration Pantoprazole Sodium 40 mg 12/26/19 06:00 12/26/19 06:[address] Tablet PO 01/25/20 05:59 40 mg Q6AM JOSE Administration Sodium Chloride 2.5 ml 12/25/19 14:00 12/26/19 06:16 Saline Flush 2.5 Ml Monoject Prefil Syrin IV 01/24/20 13:59 Not Given Q8 JOSE Valsartan 40 mg 12/25/19 11:00 12/25/19 22:40 Diovan 40 Mg Tablet PO 01/24/20 10:59 Not Given Q12 JOSE Discontinued Medications Generic Name Dose Route Start Last Admin Trade Name Freq PRN Reason Stop Dose Admin Carvedilol 3.125 mg 12/25/19 10:00 12/25/19 10:35 Coreg 3.125 Mg Tablet PO 01/24/20 09:59 Not Given Q12 JOSE Clonidine HCl Confirm 12/25/19 19:23 12/25/19 19:32 Catapres-Tts 1 (0.1 Mg/24 Hr) Transderm Patch Administered 12/25/19 19:24 1 each Dose Administration 1 each .ROUTE .STK-MED ONE Hydrochlorothiazide 25 mg 12/26/19 10:00 Hydrodiuril 25 Mg Tablet PO 01/25/20 09:59 DAILY JOSE Hydrochlorothiazide 12.5 mg 12/25/19 18:30 12/25/19 18:24 Hydrodiuril 12.5 Mg Tablet PO 12/25/19 18:31 12.5 mg NOW ONE Administration Isosorbide Mononitrate 120 mg 12/25/19 11:00 12/25/19 10:52 Imdur 60 Mg Tablet.Er PO 01/24/20 10:59 120 mg DAILY JOSE Administration Isosorbide Mononitrate 120 mg 12/26/19 10:00 Imdur 60 Mg Tablet.Er PO 01/25/20 09:59 DAILY [facility] Nitroglycerin 1 gm 12/25/19 19:06 12/25/19 19:44 Nitrol 2% Ointment 1gm Packet TP 12/25/19 19:07 Not Given NOW ONE Nitroglycerin Confirm 12/25/19 19:09 12/25/19 19:14 Nitrol 2% Ointment 1gm Packet Administered 12/25/19 19:10 1 gm Dose Administration 1 gm .ROUTE .STK-MED ONE Valsartan 40 mg 12/25/19 20:30 12/25/19 19:25 Diovan 40 Mg Tablet PO 12/25/19 20:31 40 mg NOW ONE Administration Assessment & Plan - Diagnosis (1) CAD (coronary artery disease) Qualifiers: Coronary Disease-Associated Artery/Lesion type: [place] artery [place] vs. transplanted heart: [place] heart Associated angina: with unstable angina Qualified Code(s): I25.110 - Atherosclerotic heart disease of [place] coronary artery with unstable angina pectoris Is this a current diagnosis for this admission?: Yes Plan: 79-year-old female with a very complicated coronary artery disease history as described above who continues to have atypical chest pain that is very different from her index ischemic heart disease. Unfortunately she does have residual disease in the RCA and PDA therefore, given her recurrent symptoms, I believe she needs further evaluation to ensure those lesions are silent at this point. I discussed with her the possibility of transferring her to [facility] for further evaluation but she prefers to stay in the area and even switch to either [facility] or [facility]. Given that she has remained hemodynamically stable, that her symptoms are atypical, that her troponins are indeterminate and downtrending, that her echocardiogram in September 2019 at [facility] demonstrated a normal ejection fraction I believe she can undergo Lexiscan nuclear stress test at this facility tomorrow. Recommendations: -Continue with current dose of beta-erik, she is bradycardic therefore I do not believe we have any room to increase the dose. -Continue with ARB. -Continue with high intensity statin therapy and DAPT for at least until September 2019 and preferably for life given the multitude of stents that she has in the coronaries as well as how long they are. -Dr. Mono Rodríguez will be taking over her care tomorrow morning. (2) Hypertension Qualifiers: Hypertension type: essential hypertension Qualified Code(s): I10 - Essential (primary) hypertension Is this a current diagnosis for this admission?: Yes Plan: Her blood pressure continues to be above her goal of 130/80 or below however it is significantly improved. Recommendations: -I will defer further management to the primary team. (3) Hyperlipidemia Is this a current diagnosis for this admission?: Yes Plan: She is on high intensity statin therapy. Recommendations: -Continue with current medical management. -Fasting lipid panel. If LDL not at goal of 70 or below I recommend adding Zetia 10 mg daily.
--- NOTE | 2019-12-26 08:31 | EKG REPORT ---
SEVERITY:- ABNORMAL ECG - SINUS BRADYCARDIA RIGHT BUNDLE BRANCH BLOCK NONSPECIFIC ANTEROLATERAL ST-T CHANGES : Confirmed by: Michael Perez MD 26-Dec-2019 08:30:52
[2019-12-26] MEDS: DOCUSATE SODIUM 100 MG CAPSULE PO SCH ×2 (09:24→18:30)
[2019-12-26] MEDS: CLOPIDOGREL BISULFATE 75 MG TABLET PO SCH (09:24)
[2019-12-26] MEDS: CARVEDILOL 3.125 MG TABLET PO SCH ×3 (09:31→21:52)
[2019-12-26] MEDS: VALSARTAN 40 MG TABLET PO SCH (09:32)
[2019-12-26] MEDS: CHLORTHALIDONE 25 MG TABLET PO SCH (09:32)
[2019-12-26] MEDS ORDERED: ISOSORBIDE MONONITRATE 60 MG TAB.ER.24H PO SCH (10:00)
[2019-12-26] MEDS ORDERED: HYDROCHLOROTHIAZIDE 25 MG TABLET PO SCH (10:00)
--- NOTE | 2019-12-26 13:27 | PDOC PROGRESS REPORT ---
Subjective Progress Note for:: 12/26/19 Subjective:: No complaints. Resting on the edge of the bed eating lunch. Anxiety is still a chronic issue. Reason For Visit: ANGINA CORONARY ARTERY DISEASE UNCONTROLLED Physical Exam Vital Signs: Temp Pulse Resp BP Pulse Ox 97.7 F 55 L 18 191/67 H 97 12/26/19 08:09 12/26/19 08:09 12/26/19 08:09 12/26/19 08:09 12/26/19 08:09 Intake & Output 12/25/19 12/26/19 12/27/19 06:59 06:59 06:59 Intake Total 676 460 Balance 676 460 Weight 79.379 kg 78.8 kg General appearance: PRESENT: no acute distress, cooperative, well-developed, well-nourished Head exam: PRESENT: atraumatic, normocephalic Eye exam: PRESENT: conjunctiva pink. ABSENT: scleral icterus Ear exam: PRESENT: normal external ear exam. ABSENT: bleeding, drainage Respiratory exam: PRESENT: clear to auscultation chip, symmetrical, unlabored. ABSENT: rales, rhonchi, tachypnea, wheezes Cardiovascular exam: PRESENT: RRR, +S1, +S2 GI/Abdominal exam: PRESENT: normal bowel sounds, soft. ABSENT: tenderness Neurological exam: PRESENT: alert, awake, oriented to person, oriented to place, oriented to time, oriented to situation, CN II-XII grossly intact. ABSENT: altered Psychiatric exam: ABSENT: agitated, anxious Results Laboratory Results: 12/26/19 06:12 12/26/19 06:12 12/26/19 12/26/19 06:12 06:12 WBC 8.4 RBC 2.85 L Hgb 9.5 L Hct 28.3 L MCV 99 H MCH 33.4 MCHC 33.7 RDW 15.4 H Plt Count 229 Seg Neutrophils % 60.0 Sodium 138.7 Potassium 4.7 Chloride 112 H Carbon Dioxide 19 L Anion Gap 8 BUN 49 H Creatinine 1.67 H Est GFR ( Amer) 36 L Glucose 102 Calcium 8.7 Phosphorus 5.1 H Albumin 3.4 L 12/25/19 12/25/19 12/25/19 02:56 02:56 05:51 Creatine Kinase 71 CK-MB (CK-2) 2.38 Troponin I 0.049 0.053 12/25/19 12/25/19 11:44 18:10 Creatine Kinase CK-MB (CK-2) Troponin I 0.048 0.040 Impressions: Chest X-Ray 12/25/19 00:00 IMPRESSION: Cardiomegaly. Lungs are clear copyright 2011 [employer]- All Rights Reserved Assessment and Plan - Diagnosis (1) Unstable angina Is this a current diagnosis for this admission?: Yes Plan: Resting comfortably. Pain-free at this time. We will continue current regimen. (2) CAD (coronary artery disease) Qualifiers: Coronary Disease-Associated Artery/Lesion type: [place] artery [place] vs. transplanted heart: [place] heart Associated angina: with unstable angina Qualified Code(s): I25.110 - Atherosclerotic heart disease of [place] coronary artery with unstable angina pectoris Is this a current diagnosis for this admission?: Yes Plan: Continue current regimen. Patient is having a stress test tomorrow. Anxiety may be contributing to her chest pain. (3) Hypertension Qualifiers: Hypertension type: essential hypertension Qualified Code(s): I10 - Essential (primary) hypertension Is this a current diagnosis for this admission?: Yes Plan: Blood pressure is slightly better. I will increase the angiotensin receptor erik. (4) Claudication Is this a current diagnosis for this admission?: Yes Plan: Continue Plavix and aspirin (5) Stage III chronic kidney disease Is this a current diagnosis for this admission?: Yes Plan: Creatinine is down to 1.67. Urine output is fair at approximately 600 to 700 mL. Continue to monitor renal function. (6) Anemia in chronic kidney disease Qualifiers: Chronic kidney disease stage: stage 3 (moderate) Qualified Code(s): N18.3 - Chronic kidney disease, stage 3 (moderate); D63.1 - Anemia in chronic kidney disease Is this a current diagnosis for this admission?: Yes Plan: Hemoglobin is stable at 9.5 (7) Anxiety Is this a current diagnosis for this admission?: Yes Plan: Continue Xanax. We will start low-dose Lexapro as well (8) Hypothyroidism Qualifiers: Hypothyroidism type: unspecified Qualified Code(s): E03.9 - Hypothyroidism, unspecified Is this a current diagnosis for this admission?: Yes Plan: Continue levothyroxine (9) Multiple myeloma Qualifiers: Multiple myeloma remission status: in remission Qualified Code(s): C90.01 - Multiple myeloma in remission Is this a current diagnosis for this admission?: Yes Plan: Currently in remission. - Time Time Spent with patient: 15-24 minutes Medications reviewed and adjusted accordingly: Yes Anticipated Discharge Disposition: Home, Self Care Anticipated Discharge Timeframe: within 48 hours
[2019-12-26] MEDS: MAG HYDROX/AL HYDROX/SIMETH SUSP 30 ML UDCUP PO PRN (14:15)
[2019-12-26] MEDS: ALPRAZOLAM 0.5 MG TABLET PO PRN ×2 (14:19→23:59)
[2019-12-26] MEDS: NITROGLYCERIN 0.4 MG/TAB 25 TAB/BOTTLE SL PRN ×2 (18:20→18:26)
[2019-12-26] MEDS: SUCRALFATE 1 GM TABLET PO SCH (20:16)
--- NOTE | 2019-12-26 20:39 | EKG REPORT ---
SEVERITY:- ABNORMAL ECG - SINUS RHYTHM RIGHT BUNDLE BRANCH BLOCK BORDERLINE ST DEPRESSION, ANTEROLATERAL LEADS : Confirmed by: Michael Perez MD 26-Dec-2019 20:38:48
[2019-12-26] MEDS: ASPIRIN 81 MG TABLET, ENT COATED PO SCH (21:52)
[2019-12-26] MEDS: VALSARTAN 80 MG TABLET PO SCH (21:52)
[2019-12-26] MEDS: ATORVASTATIN CALCIUM 80 MG TABLET PO SCH (21:52)
[2019-12-26] MEDS: GABAPENTIN 300 MG CAPSULE PO SCH (21:52)
[2019-12-26] MEDS ORDERED: ESCITALOPRAM OXALATE 10 MG TABLET PO SCH (22:00)
[2019-12-27] MEDS: MAG HYDROX/AL HYDROX/SIMETH SUSP 30 ML UDCUP PO PRN (00:23)
[2019-12-27] MEDS: PANTOPRAZOLE SODIUM 40 MG TABLET.DR PO SCH (06:45)
[2019-12-27] MEDS: NITROGLYCERIN 2% OINTMENT 1 GM PACKET TP SCH (06:45)
[2019-12-27] MEDS: HEPARIN SOD (PORCINE) 5,000 UNIT/ML 1 ML VIAL SUBCUT SCH (06:45)
[2019-12-27 06:46] LABS: ALBUMIN 3.4 g/dL (3.5-5.0); ANION GAP 7 (5-19); BLOOD UREA NITROGEN 41 mg/dL (7-20); CALCIUM 8.5 mg/dL (8.4-10.2); CARBON DIOXIDE 21 mmol/L (22-30); CHLORIDE 111 mmol/L (98-107); GLUCOSE 111 mg/dL (75-110); PHOSPHORUS 4.2 mg/dL (2.5-4.5); POTASSIUM 4.9 mmol/L (3.6-5.0)
[2019-12-27] MEDS: LEVOTHYROXINE SODIUM 0.088 MG TABLET PO SCH (06:46)
[2019-12-27] MEDS ORDERED: ASPIRIN 81 MG TABLET, CHEWABLE ONE (08:00)
[2019-12-27] MEDS ORDERED: NITROGLYCERIN 0.4 MG/TAB 25 TAB/BOTTLE ONE (08:00)
[2019-12-27] MEDS: SUCRALFATE 1 GM TABLET PO SCH ×2 (09:13→11:38)
[2019-12-27] MEDS: CLOPIDOGREL BISULFATE 75 MG TABLET PO SCH (09:13)
[2019-12-27] MEDS: VALSARTAN 80 MG TABLET PO SCH (09:13)
[2019-12-27] MEDS: DOCUSATE SODIUM 100 MG CAPSULE PO SCH (09:13)
[2019-12-27] MEDS: CARVEDILOL 3.125 MG TABLET PO SCH (09:13)
[2019-12-27] MEDS: CHLORTHALIDONE 25 MG TABLET PO SCH (09:13)
[2019-12-27] MEDS ORDERED: NITROGLYCERIN/D5W 50 MG/250 ML RTUINJ IV PRN (09:44)
[2019-12-27] MEDS ORDERED: HEPARIN SOD (PORCINE) 1,000 UNIT/ML 10 ML VIAL IV ONE (09:49)
[2019-12-27] MEDS ORDERED: HEPARIN SODIUM,PORCINE/D5W 25,000 UNIT/250 ML RTUINJ IV PRN ×2 (09:49→11:00)
--- NOTE | 2019-12-27 10:30 | PDOC TRANSFER SUMMARY ---
General Admission Date/PCP: 12/25/19 10:03 Resuscitation Status: Full Code - Transfer Diagnosis (1) Unstable angina Is this a current diagnosis for this admission?: Yes Diagnosis Summary: The patient had 2 stents placed at [facility] in April 2019 after a myocardial infarction in January 2019. In September 2019 the patient had 3 additional stents placed. Approximately 10 days ago the patient was admitted to [facility] for uncontrolled hypertension. She left on Friday 10 days ago. She presented to [facility] on Friday, December 24. She had uncontrolled hypertension. She had 3 episodes of chest pain through the night before. Each was relieved with sublingual nitroglycerin and baby aspirin. She was scheduled for a Lexiscan stress test today but she was hypertensive and complaining of chest pain. Dr. Elijah Rodríguez business development specialist spoke with Dr. Greenfield who is excepted the patient at [facility] for cardiac catheterization. The patient was placed on a heparin infusion as well as a nitroglycerin infusion. She has been on aspirin 81 mg as well as Plavix 75 mg daily. (2) CAD (coronary artery disease) Is this a current diagnosis for this admission?: Yes Diagnosis Summary: The patient has had several episodes of chest discomfort. EKGs up until today showed some lateral ST depression which is old however after discussion with Dr. Rodríguez today's EKG performed in the stress lab had new changes. The patient is on antiplatelet therapy as above. She was placed on heparin and nitroglycerin i nfusions. She is on high-dose statin as well as multiple medications to try and control her blood pressure. (3) Hypertension Is this a current diagnosis for this admission?: Yes Diagnosis Summary: Extremely difficult to control. I have increased her angiotensin receptor erik to 80 mg twice daily. I did add a clonidine patch 0.1. She is on chlorthalidone and carvedilol as well. (4) Claudication Is this a current diagnosis for this admission?: Yes Diagnosis Summary: Based on the patient's reporting she likely has peripheral arterial disease in the left leg. She described claudication. She is already on Plavix and aspirin. Further evaluation to be determined (5) Stage III chronic kidney disease Is this a current diagnosis for this admission?: Yes Diagnosis Summary: BUN and creatinine have actually improved somewhat. We will need to see how the increased dose of angiotensin receptor erik affects her renal function. (6) Anemia in chronic kidney disease Is this a current diagnosis for this admission?: Yes Diagnosis Summary: Anemia has been stable. (7) Anxiety Is this a current diagnosis for this admission?: Yes Diagnosis Summary: The patient is on alprazolam. I did add 10 mg of Lexapro as I believe this will help. (8) Gastroesophageal reflux disease Is this a current diagnosis for this admission?: Yes Diagnosis Summary: The patient does have a history of reflux. She is already on Protonix. On the outside chance that her chest discomfort is gastrointestinal I did add Carafate. Because she has significant coronary disease her transfer to [facility] for r eassessment in the [facility] still takes precedence. (9) Hypothyroidism Is this a current diagnosis for this admission?: Yes Diagnosis Summary: Continue levothyroxine 88 mcg daily (10) Multiple myeloma Is this a current diagnosis for this admission?: Yes Diagnosis Summary: Currently in remission - Transfer Medications Home Medications: Levothyroxine Sodium 88 mcg PO Q6AM 12/24/16 Alprazolam [Xanax 0.5 mg Tablet] 0.5 mg PO HSP PRN 12/25/19 Aspirin [Aspirin 81 mg Chewable Tablet] 81 mg PO DAILY 12/25/19 Atorvastatin Calcium [Lipitor 80 mg Tablet] 80 mg PO QHS 12/25/19 Clopidogrel Bisulfate [Plavix 75 mg Tablet] 75 mg PO DAILY 12/25/19 Gabapentin [Neurontin 300 mg Capsule] 300 mg PO QHS 12/25/19 Isosorbide Mononitrate [Imdur 60 mg Tablet.er] 120 mg PO DAILY 12/25/19 Pantoprazole Sodium [Protonix [address] Tablet] 40 mg PO Q6AM 12/25/19 Transfer Medications: Current Medications Acetaminophen (Tylenol 325 Mg Tablet) 650 mg PO Q4HP PRN PRN Reason: FOR PAIN OR TEMP Stop: 01/24/20 10:01 Last Admin: 12/25/19 22:40 Dose: 650 mg Documented by: Al Hydrox/Mg Hydrox/Simethicone (Maalox Plus Susp 30 Udcup) 15 ml PO Q6HP PRN PRN Reason: HEARTBURN Stop: 01/24/20 10:11 Last Admin: 12/27/19 00:23 Dose: 15 ml Documented by: Alprazolam (Xanax 0.5 Mg Tablet) 0.5 mg PO BIDP PRN PRN Reason: ANXIETY Stop: 01/01/20 10:11 Last Admin: 12/26/19 23:59 Dose: 0.5 mg Documented by: Aspirin (Ecotrin 81 Mg Ec Tablet) 81 mg PO QHS [facility] Stop: 01/24/20 21:59 Last Admin: 12/26/19 21:52 Dose: 81 mg Documented by: Atorvastatin Calcium (Lipitor 80 Mg Tablet) 80 mg PO QHS [facility] Stop: 01/24/20 21:59 Last Admin: 12/26/19 21:52 Dose: 80 mg Documented by: Carvedilol (Coreg 3.125 Mg Tablet) 3.125 mg PO Q12 [facility] Stop: 01/24/20 10:59 Last Admin: 12/27/19 09:13 Dose: 3.125 mg Documented by: Chlorthalidone (Hygroton 25 Mg Tablet) 25 mg PO DAILY [facility] Stop: 01/25/20 09:59 Last Admin: 12/27/19 09:13 Dose: 25 mg Documented by: Clonidine HCl (Catapres-Tts 1 (0.1 Mg/24 Hr) Transderm Patch) 1 each TD Sa@10 [facility] Stop: 01/24/20 19:09 Last Admin: 12/25/19 19:44 Dose: Not Given Documented by: Clopidogrel Bisulfate (Plavix 75 Mg Tablet) 75 mg PO DAILY [facility] Stop: 01/24/20 09:59 Last Admin: 12/27/19 09:13 Dose: 75 mg Documented by: Docusate Sodium (Colace 100 Mg Capsule) 100 mg PO BID [facility] Stop: 01/24/20 17:59 Last Admin: 12/27/19 09:13 Dose: 100 mg Documented by: Escitalopram Oxalate (Lexapro 10 Mg Tablet) 10 mg PO QHS [facility] Stop: 01/25/20 21:59 Last Admin: 12/26/19 21:52 Dose: 10 mg Documented by: Gabapentin (Neurontin 300 Mg Capsule) 300 mg PO QHS [facility] Stop: 01/24/20 21:59 Last Admin: 12/26/19 21:52 Dose: 300 mg Documented by: Sodium Chloride (Nacl 0.9% 1000 Ml Iv Soln) 1,000 mls @ 50 mls/hr IV CONTINUOUS PRN PRN Reason: THIS MED IS NOT "PRN" Stop: 01/24/20 18:58 Last Admin: 12/25/19 20:35 Dose: 50 mls/hr Documented by: Nitroglycerin/Dextrose (Ntg Rtu 50 Mg/D5w 250 Ml Iv Premix Bottle) 50 mg in 250 mls @ 0 mls/hr IV CONTINUOUS PRN; Protocol PRN Reason: THIS MED IS NOT "PRN" Stop: 01/26/20 09:43 Heparin Sodium/Dextrose (Heparin Rtu 25,000 Unit/250 Ml D5w Premix) 25,000 unit in 250 mls @ 0 mls/hr IV CONTINUOUS PRN; Protocol PRN Reason: THIS MED IS NOT "PRN" Stop: 01/26/20 09:48 Levothyroxine Sodium (Synthroid 0.088 Mg Tablet) 0.088 mg PO Q6AM [facility] Stop: 01/25/20 05:59 Last Admin: 12/27/19 06:46 Dose: 0.088 mg Documented by: Nitroglycerin (Nitrostat 0.4 Mg (1/150 Gr) Tabs 25/Bottle) 1 tab SL Q5MP PRN PRN Reason: FOR CHEST PAIN Stop: 01/24/20 09:58 Last Admin: 12/26/19 18:26 Dose: 1 tab Documented by: Pantoprazole Sodium (Protonix [address] Tablet) 40 mg PO Q6AM [facility] Stop: 01/25/20 05:59 Last Admin: 12/27/19 06:45 Dose: 40 mg Documented by: Sodium Chloride (Saline Flush 2.5 Ml Monoject Prefil Syrin) 2.5 ml IV Q8 [facility] Stop: 01/24/20 13:59 Last Admin: 12/27/19 06:45 Dose: 2.5 ml Documented by: Sucralfate (Carafate 1 Gm Tablet) 1 gm PO AC [facility] Stop: 01/25/20 18:44 Last Admin: 12/27/19 09:13 Dose: 1 gm Documented by: Valsartan (Diovan 80 Mg Tablet) 80 mg PO Q12 [facility] Stop: 01/25/20 21:59 Last Admin: 12/27/19 09:13 Dose: 80 mg Documented by: - Allergies Allergies/Adverse Reactions: amlodipine Allergy (Verified 12/25/19 03:03) hydralazine Allergy (Verified 10/02/19 02:08) - Diet/Activity Discharge Diet: Cardiac, Other (Comments) - Keep n.p.o. for cardiac catheterization Discharge Activity: Other - Limited activity until evaluation in the cardiac Roll [facility] Hospital Course Hospital Course: Details as above Physical Exam Vital Signs: Temp Pulse Resp BP Pulse Ox 97.8 F 58 L 16 178/70 H 98 12/27/19 07:22 12/27/19 07:22 12/27/19 07:22 12/27/19 07:22 12/27/19 07:22 Intake & Output 12/26/19 12/27/19 12/28/19 06:59 06:59 06:59 Intake Total 676 720 Balance 676 720 Weight 78.8 kg 78.8 kg General appearance: PRESENT: cooperative, mild distress, well-developed Head exam: PRESENT: atraumatic, normocephalic Eye exam: PRESENT: conjunctiva pale. ABSENT: scleral icterus Ear exam: PRESENT: normal external ear exam. ABSENT: bleeding, drainage Mouth exam: PRESENT: moist, tongue midline Respiratory exam: PRESENT: clear to auscultation chip, symmetrical, unlabored. ABSENT: rales, rhonchi, tachypnea, wheezes Cardiovascular exam: PRESENT: RRR, +S1, +S2 GI/Abdominal exam: PRESENT: normal bowel sounds, soft. ABSENT: distended, tenderness Rectal exam: PRESENT: deferred Gentrourinary exam: ABSENT: indwelling catheter Extremities exam: ABSENT: pedal edema Musculoskeletal exam: PRESENT: ambulatory. ABSENT: deformity, dislocation Neurological exam: PRESENT: alert, awake, oriented to person, oriented to place, oriented to time, oriented to situation, CN II-XII grossly intact. ABSENT: altered, motor sensory deficit Psychiatric exam: PRESENT: anxious - Regarding transfer to [facility], appropriate affect. ABSENT: agitated Focused psych exam: ABSENT: delusional, paranoid, restlessness Skin exam: PRESENT: dry, normal color, warm Results Laboratory Results: 12/26/19 06:12 12/27/19 06:05 12/27/19 06:05 Sodium 139.4 Potassium 4.9 Chloride 111 H Carbon Dioxide 21 L Anion Gap 7 BUN 41 H Creatinine 1.58 H Est GFR ( Amer) 38 L Glucose 111 H Calcium 8.5 Phosphorus 4.2 Albumin 3.4 L 12/25/19 12/25/19 12/25/19 02:56 02:56 05:51 Creatine Kinase 71 CK-MB (CK-2) 2.38 Troponin I 0.049 0.053 12/25/19 12/25/19 11:44 18:10 Creatine Kinase CK-MB (CK-2) Troponin I 0.048 0.040 Impressions: Chest X-Ray 12/25/19 00:00 IMPRESSION: Cardiomegaly. Lungs are clear copyright 2011 [employer]- All Rights Reserved Plan Discharge Plan: Transferred to [facility] for cardiac catheterization. Unfortunately the patient did not receive a rapid COVID test at this facility because of the marked out of rapid test. She did have a COVID test approximately 10 days ago at [facility]. She will likely need to be tested prior to going to the [facility]. Time Spent: Greater than 30 Minutes
[2019-12-27 10:54] LABS: ABSOLUTE BASOPHILS # (AUTO) 0.1 10^3/uL (0.0-0.2); ABSOLUTE EOSINOPHILS # (AUTO) 0.2 10^3/uL (0.0-0.6); ABSOLUTE LYMPHOCYTES (AUTO) 1.7 10^3/uL (0.5-4.7); ABSOLUTE MONOCYTES (AUTO) 0.7 10^3/uL (0.1-1.4); ABSOLUTE NEUT (AUTO) 5.8 10^3/uL (1.7-8.2); BASOPHILS % (AUTO) 0.6 % (0-2); EOSINOPHILS % (AUTO) 2.9 % (0-6); HEMATOCRIT 29.6 % (36.0-47.0); HEMOGLOBIN 10.1 g/dL (12.0-15.5); MEAN CORPUSCULAR HEMOGLOBIN 33.6 pg (27.0-33.4); MEAN CORPUSCULAR HGB CONC 34.2 g/dL (32.0-36.0); MEAN CORPUSCULAR VOLUME 98 fl (80-97); MONOCYTES % (AUTO) 8.1 % (3-13); PLATELET COUNT 240 10^3/uL (150-450); RED BLOOD COUNT 3.01 10^6/uL (3.72-5.28); RED CELL DISTRIBUTION WIDTH 15.3 % (11.5-14.0); SEGMENTED NEUTROPHILS % (AUTO) 68.4 % (42-78); TOTAL CELLS COUNTED % (AUTO) 100 %; WHITE BLOOD COUNT 8.5 10^3/uL (4.0-10.5)
[2019-12-27 10:58] LABS: PROTHROMBIN TIME 13.4 SEC (11.4-15.4)
[2019-12-27 10:59] LABS: PARTIAL THROMBOPLASTIN TIME 28.5 SEC (23.5-35.8)
[2019-12-27] MEDS ORDERED: HEPARIN SOD (PORCINE) 1,000 UNIT/ML 10 ML VIAL IV PRN (11:00)
[2019-12-27] MEDS: NORMAL SALINE 1000 ML 1,000 ML IV PRN (12:33)
[2019-12-27 13:04] LABS: APPEARANCE,URINE CLEAR; BILIRUBIN,URINE NEGATIVE (NEGATIVE); COLOR,URINE STRAW; GLUCOSE, URINE 50 mg/dL (NEGATIVE); KETONES,URINE NEGATIVE (NEGATIVE); LEUKOCYTE ESTERASE,URINE NEGATIVE (NEGATIVE); NITRITE,URINE NEGATIVE (NEGATIVE); PROTEIN,URINE >=500 mg/dL (NEGATIVE); URINE SPECIFIC GRAVITY 1.009; UROBILINOGEN,URINE NEGATIVE mg/dL (<2.0)
[2019-12-27 13:13] VITALS: BP 205/77
--- NOTE | 2019-12-27 13:13 | PDOC PROGRESS REPORT ---
Subjective Progress Note for:: 12/27/19 Subjective:: Patient was seen and evaluated in the stress lab. I was called to the patient's bedside with her reporting significant chest pain. She appeared to be in a fair amount of discomfort. At this point we decided not to proceed with the stress test. Rest images had been obtained. Patient had not h received ad a.m. medications Reason For Visit: ANGINA CORONARY ARTERY DISEASE UNCONTROLLED Physical Exam Vital Signs: Temp Pulse Resp BP Pulse Ox 97.8 F 58 L 16 178/70 H 98 12/27/19 07:22 12/27/19 07:22 12/27/19 07:22 12/27/19 07:22 12/27/19 07:22 Intake & Output 12/26/19 12/27/19 12/28/19 06:59 06:59 06:59 Intake Total 676 720 Balance 676 720 Weight 78.8 kg 78.8 kg General appearance: PRESENT: mild distress, obese, well-developed, well- nourished Head exam: PRESENT: atraumatic, normocephalic Eye exam: PRESENT: conjunctiva pink, EOMI Mouth exam: PRESENT: moist Respiratory exam: PRESENT: symmetrical, unlabored Cardiovascular exam: PRESENT: RRR, +S1, +S2 Pulses: PRESENT: normal radial pulses GI/Abdominal exam: PRESENT: soft Rectal exam: PRESENT: deferred Musculoskeletal exam: PRESENT: normal inspection Neurological exam: PRESENT: alert, awake, oriented to person, oriented to place, oriented to time, oriented to situation Skin exam: PRESENT: dry, intact Results Laboratory Results: 12/26/19 06:12 12/27/19 06:05 12/27/19 06:05 Sodium 139.4 Potassium 4.9 Chloride 111 H Carbon Dioxide 21 L Anion Gap 7 BUN 41 H Creatinine 1.58 H Est GFR ( Amer) 38 L Glucose 111 H Calcium 8.5 Phosphorus 4.2 Albumin 3.4 L 12/25/19 12/25/19 12/25/19 02:56 02:56 05:51 Creatine Kinase 71 CK-MB (CK-2) 2.38 Troponin I 0.049 0.053 12/25/19 12/25/19 11:44 18:10 Creatine Kinase CK-MB (CK-2) Troponin I 0.048 0.040 EKG Comments: Twelve-lead EKG in the stress lab 12/27/2019 8:50 AM Sinus rhythm, right bundle branch block first-degree AV block ST depression inferior leads with ST elevation in aVR. ST depression that is less pronounced is noticed in the lateral leads and also lateral precordial leads. Twelve-lead EKG 12/25/2019 Sinus rhythm, right bundle branch block, ST depression in lateral leads. Cardiac troponin 12/25/2019 2:56 AM-0.049 12/25/2019 5:51 AM-0.053 12/25/2019 11:44 AM-0.048 12/25/2019 1810-0.040 Impressions: Chest X-Ray 12/25/19 00:00 IMPRESSION: Cardiomegaly. Lungs are clear copyright 2011 [employer] All Rights Reserved Assessment & Plan - Diagnosis (1) CAD (coronary artery disease) Qualifiers: Coronary Disease-Associated Artery/Lesion type: [place] artery [place] vs. transplanted heart: [place] heart Associated angina: with unstable angina Qualified Code(s): I25.110 - Atherosclerotic heart disease of [place] coronary artery with unstable angina pectoris Is this a current diagnosis for this admission?: Yes Plan: Coronary artery disease status post recent PCI in September 2019 at [place] Patient presenting with ongoing chest pain. Rest images were obtained per protocol. Stress test was aborted. Given ongoing chest pain with EKG changes suggestive of myocardial ischemia will initiate treatment. We will initiate intravenous nitroglycerin for pain relief. Patient already has responded somewhat to sublingual nitroglycerin that was administered in the lab We will also initiate unfractionated heparin ACS protocol Aspirin 81 mg daily Continue statin and beta-erik I discussed with the patient that given ongoing chest pain it would be reasonable to pursue cardiac catheterization. With this in mind we will go ahead and arrange for transfer of the patient to [place] where most recent intervention was performed. (2) Hypertension Qualifiers: Hypertension type: essential hypertension Qualified Code(s): I10 - Essential (primary) hypertension Is this a current diagnosis for this admission?: Yes Plan: Blood pressure is poorly controlled. Patient is quite stressed at the moment. Continue carvedilol 3.125 mg twice daily Continue clonidine transdermal patch (3) Unstable angina Is this a current diagnosis for this admission?: Yes Plan: Symptoms suggestive of unstable angina with ST depression in the lateral leads which is significantly different from previous EKG. We will initiate treatment with intravenous nitroglycerin Anticipate transfer to [place] Initiate unfractionated heparin ACS protocol Continue other medications as feasible given history of coronary artery disease. - Notes Notes: Unstable angina. Given ongoing chest pain stress test was aborted. Will transfer to [place] for further care including potentially cardiac authorization given recent stents.
--- NOTE | 2019-12-27 13:22 | DRAGON STRESS TEST REPORT ---
Pharmacological nuclear stress test Date: December 27, 2019 Referring physician: Waldemar Weinberg MD Performing physician: Mono Rodríguez MD Indication: Chest pain Clinical history 77-year-old lady with systemic hypertension, coronary artery disease, dyslipidemia with recent PCI at [place] in September 2019 was brought down for stress testing. In the stress lab patient endorsed significant chest pain. EKG showed lateral ST depressions which were more pronounced than previous. Based on this stress test was aborted. Rest images only were obtained. Procedure The patient presented to the stress lab. Rest images were obtained according to standard protocol after the injection of 13.03 millicurie technetium 99m sestamibi. Patient was brought to the lab for stress testing. However she developed chest pain concerning for unstable angina with dynamic EKG changes including significant ST depression and thus the stress test was aborted. Plans were made to transfer the patient to [place] for further management. Only rest images were obtained. EKG showed sinus rhythm at 72 bpm with right bundle branch block with ST depression in the inferior and lateral leads with ST elevation in aVR and pre- septal leads. There were no arrhythmias observed. Raw as well as processed rest images were reviewed. No assessment of myocardial ischemia can be made as stress images were not obtained. There was mild to moderate gut uptake which did not interfere with the study. The rest images show a large size moderately intense defect in the inferior lateral wall. There is a small size mildly intense defect in the mid to basal anterior wall as well. There is severe inferior and inferolateral hypokinesis. The calculated ejection fraction is 49%. Conclusion The resting EKG is highly suggestive of myocardial ischemia. The rest images show abnormal perfusion in the inferior and inferior lateral wall. Unable to comment on presence of ischemia as stress images were not obtained. The gated left ventricular ejection fraction is 49 %. The patient is being transferred to [place], [place] for further care due to ongoing chest pain and unstable angina. Initiate intravenous heparin-ACS protocol and intravenous nitroglycerin for symptom relief. NIKOLAI
[2019-12-27] MEDS ORDERED: VALSARTAN 40 MG TABLET PO ONE (14:30)
== END 2019-12-27 14:20 | disposition short-term general hospital (02) | DRG 303 ==
LOC: ER 02:25 → EH 06:53 → OBSVTOIN 06:53 → UNDOADMOB 06:53 → INTOOBSV 06:53 → 4S 08:50 → EH 08:50 → OBSVTOIN 10:03 → 4S 10:03 → 3W 12-27 11:12
PROVIDERS: ADMIT Hospitalist; ATTEND Hospitalist
DX: I25.110 Atherosclerotic heart disease of native coronary artery with unstable angina pectoris (principal); I13.0 Hypertensive heart and chronic kidney disease with heart failure and stage 1 through stage 4 chronic kidney disease, or unspecified chronic kidney disease; C90.01 Multiple myeloma in remission; I50.30 Unspecified diastolic (congestive) heart failure; D63.1 Anemia in chronic kidney disease; N18.3 Chronic kidney disease, stage 3 (moderate); K21.9 Gastro-esophageal reflux disease without esophagitis; E03.9 Hypothyroidism, unspecified; I73.9 Peripheral vascular disease, unspecified; F41.9 Anxiety disorder, unspecified; E78.5 Hyperlipidemia, unspecified; R73.03 Prediabetes; R00.1 Bradycardia, unspecified; I45.10 Unspecified right bundle-branch block; E66.9 Obesity, unspecified; Z95.5 Presence of coronary angioplasty implant and graft; I25.2 Old myocardial infarction; Z79.02 Long term (current) use of antithrombotics/antiplatelets; Z79.82 Long term (current) use of aspirin; Z79.899 Other long term (current) drug therapy; Z88.8 Allergy status to other drugs, medicaments and biological substances; Z86.73 Personal history of transient ischemic attack (TIA), and cerebral infarction without residual deficits; Z83.3 Family history of diabetes mellitus; Z82.49 Family history of ischemic heart disease and other diseases of the circulatory system
CPT/HCPCS: 36415; 71045; 78451; 80053; 80069; 81001; 82550; 82553; 84484; 85025; 85610; 85730; 93005; 93010; 99285; A9500; J1644; J3490; J7030; Q9969